=== PATIENT | female | born 1930 | race Caucasian/White ===

== ENCOUNTER 2017-10-23 10:13 | Inpatient (IN) | payer OTHER ==
--- OUTSIDE RECORDS SUMMARY | 2017-10-23 10:15 | XMS REPORT | Clinical Summary ---
:1930 Author Organization [facility] Address [address] [place] [address] Phone Care Team Providers Name Role Phone Unavailable Primary Care Provider Unavailable Allergies No Known Allergies Current Medications Prescription Sig. Disp. Refills Start Date End Date Status HYDROcodone-acetaminoph Take 1 tablet by Active en (NORCO 7.5-325) mouth every 12 7.5-325 mg per tablet (twelve) hours. sucralfate (CARAFATE) 1 Take 1 g by mouth Active gram tablet 3 (three) times daily. cholecalciferol, Take 5,000 Units Active vitamin D3, 5,000 unit by mouth daily. Tab budesonide-formoterol Inhale 2 puffs by Active (SYMBICORT) 160-4.5 mouth via inhaler mcg/actuation inhaler 2 (two) times daily. bimatoprost (LUMIGAN) Place 1 drop into Active 0.03 % ophthalmic drops both eyes nightly. LORazepam (ATIVAN) 0.5 Take 0.5 mg by Active MG tablet mouth 2 (two) times daily as needed for Anxiety. ALENDRONATE SODIUM Take by mouth. Active (FOSAMAX ORAL) pantoprazole (PROTONIX) Take 1 tablet (40 30 tablet 0 09/25/2015 Active 40 MG tablet mg total) by mouth daily. methocarbamol (ROBAXIN) Take 750 mg by Active 750 MG tablet mouth daily as needed. 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 Admission for antineoplastic chemotherapy 10/07/2015 DLBCL (diffuse large B cell lymphoma) (HCC) 09/23/2015 Compression fracture of thoracic spine, non-traumatic ([facility]) 09/16/2015 Pathologic compression fracture of thoracic vertebra ([facility]) 09/11/2015 COPD (chronic obstructive pulmonary disease) ([facility]) Family History Medical History Relation Name Comments Diabetes Mother Relation Name Status Comments Mother Social History Tobacco Use Types Packs/Day Years Used Date Former Smoker Cigarettes 1 35 01/27/1944 - 01/27/1980 Alcohol Use Drinks/Week oz/Week Comments No Sex Assigned at Date Recorded Not on file Last Filed Vital Signs Not on file Plan of Treatment Not on file Implants Implanted Type Area Calciminer Device Expiration Model / Identifier Date Serial / Lot Matrix Floseal Hemo W/O Ndl 10 [id number] - [id number] Cement/F N/A: Spine GROVER:BIOSCI 12/26/2016 [id number] / Implanted: Qty: 1 on 09/17/2015 by Amadeo Vega MD iller/Ad Thoracic / hesive [id number] Voyager Mas 6.5x40 Spine N/A: Spine [employer] [id number] / Implanted: Qty: 1 on 09/17/2015 by Amadeo Vega MD Thoracic / [id number] Voyager Mas 5.5x35 Spine N/A: Spine [employer] [id number] / Implanted: Qty: 4 on 09/17/2015 by Amadeo Vega MD Thoracic / [id number] Voyager Set Screws Spine N/A: Spine [employer] [id number] / Implanted: Qty: 6 on 09/17/2015 by Amadeo Vega MD Thoracic / Orthoblend Small 10cc Spine N/A: Spine [employer] 04/13/2017 [id number] / Implanted: Qty: 1 on 09/17/2015 by Amadeo Vega MD Thoracic [id number] / Bi 4.50x884 Spine N/A: Spine [employer] [id number] / Implanted: Qty: 2 on 09/17/2015 by Amadeo Vega MD Thoracic / [id number] Voyager Mas 6.4x45 Spine N/A: Spine [employer] [id number] / Implanted: Qty: 1 on 09/17/2015 by Amadeo Vega MD Thoracic / [id number] Results Not on fileafter 10/22/2016
[2017-10-23] MEDS ORDERED: METHYLPREDNISOLONE 125 MG INJ ONE (10:37)
[2017-10-23] MEDS ORDERED: AZITHROMYCIN 500 MG/250 ML BAG ONE (10:37)
[2017-10-23] MEDS ORDERED: NA CHLORIDE 0.9% 1,000 ML ONE (10:37)
[2017-10-23] MEDS ORDERED: CEFTRIAXONE/SWI 1gm 1 GM/10 ML SYR ONE (10:37)
[2017-10-23] MEDS ORDERED: IPRATROPIUM BROM 0.5MG/2.5ML ONE (10:38)
[2017-10-23] MEDS ORDERED: ALBUTEROL 2.5 MG/3 ML NEB SOL ONE (10:38)
[2017-10-23 10:51] LABS: Arterial Blood Carboxyhemoglob 1.3 % (0-1.5); Blood Gas Oxyhemoglobin 96.9 % (94-97); Blood O2 Saturation 99.3 % (92-98.5)
[2017-10-23 10:57] LABS: Absolute Lymphocytes (CBC) 0.9 K/uL (0.7-4.9); Absolute Monocytes 0.6 K/uL (0.1-1.3); Absolute Neutrophil 6.5 K/uL (1.8-8.0); Basophils % 0.4 % (0-1.3); Eosinophils % 0.8 % (0-4.4); Hematocrit 43.9 % (36.0-45.0); Lymphocytes % 11.1 % (15.3-44.8); MCH 28.7 pg (27.0-35.0); MCV 87.4 fL (80-100); MPV 8.8 fL (7.6-11.3); Monocytes % 7.6 % (3.3-12.3); RBC Red Blood Cell Count 5.03 M/uL (3.86-4.86)
[2017-10-23 11:02] LABS: Protime INR 0.93
[2017-10-23 11:22] LABS: Albumin 3.3 g/dL (3.4-5.0); Bilirubin Direct 0.2 mg/dL (0-0.2); Bilirubin Total 0.7 mg/dL (0.2-1.0); Magnesium 2.2 mg/dL (1.8-2.4); Potassium 3.4 mmol/L (3.5-5.1); Protein, Total 7.6 g/dL (6.4-8.2)
--- NOTE | 2017-10-23 11:31 | RAD REPORT ---
EXAM DESCRIPTION: RAD - Chest Single View - 10/23/2017 11:21 am CLINICAL HISTORY: Cough;COPD Chest pain. COMPARISON: Chest Single View dated 05/13/2017; Chest Single View dated 09/06/2015; Chest Single View dated 07/13/2015; CHEST PA AND LAT 2 VIEW dated 03/23/2015 FINDINGS: Portable technique limits examination quality. Advanced emphysematous changes with fibrotic pattern seen. Left-sided port catheter has its tip in th e SVC. The heart is normal in size. Diffuse osteopenia present.Right sided axillary node dissection c lips. IMPRESSION: Advanced fibroemphysematous changes.
[2017-10-23] MEDS ORDERED: POTASSIUM 25 MEQ EFFERV TAB ONE (11:57)
[2017-10-23] MEDS ORDERED: ASPIRIN 81 MG CHEWABLE TABLET ONE (11:57)
[2017-10-23] MEDS ORDERED: FAMOTIDINE 20 MG/2 ML VIAL IV ONE (11:57)
[2017-10-23] MEDS ORDERED: ENOXAPARIN 60 MG/0.6 ML SQ ONE (11:58)
--- NOTE | 2017-10-23 11:59 | EDPHYS ---
Physician Documentation [facility] Name: Jessenia Bailey Age: 87 yrs Sex: Female : 1930 Arrival Date: 10/23/2017 Time: 10:16 Bed 5 Private MD: Bill Gregory R ED Physician Felipe Dickinson HPI: 10/23 10:29 This 87 yrs old Female presents to ER via Unassigned with complaints of Chest ge Pain, Weakness. 10:29 The patient or guardian reports chest pain that is located primarily in the anterior ge chest wall. Onset: this morning, last night. The pain does not radiate. Associated signs and symptoms: The patient has no apparent associated signs or symptoms. The chest pain is described as a pressure. Duration: The patient or guardian reports multiple episodes, with no pattern. Severity of pain: At its worst the pain was mild in the emergency department the pain has improved moderately. Historical: - Allergies: 10:33 No Known Allergies; ch - Home Meds: 10:33 Prednisone Oral [Active]; other meds unknown [Active]; ch 11:09 Carafate Oral [Active]; Daliresp 500 mcg Oral tab 1 tab once daily [Active]; ProAir HFA tw2 inhalation [Active]; Symbicort inhalation [Active]; Trazodone Oral [Active]; - PMHx: 10:33 Anxiety; COPD; hypoxia; breast cancer- remission; lymphoma- remission; hiatal hernia; ch UTI; overactive bladder; - PSHx: 10:33 R sided masectomy; L femur; lymphoma off back; Cholecystectomy; 11:09 Mastectomy, Right; femur sx; tw2 - Immunization history:: Adult Immunizations not up to date, Last tetanus immunization: not indicated for visit today. Pneumococcal vaccine is not up to date, Flu vaccine is not up to date. - Social history:: Smoking status: Patient uses tobacco products, former smoker, many years ago, Patient/guardian denies using alcohol, street drugs. - Ebola Screening: : Patient denies travel to an Ebola-affected area in the 21 days before illness onset. ROS: 10:30 Constitutional: Negative for fever, chills, and weight loss, Eyes: Negative for injury, ge pain, redness, and discharge, ENT: Negative for injury, pain, and discharge, Neck: Negative for injury, pain, and swelling, Abdomen/GI: Negative for abdominal pain, nausea, vomiting, diarrhea, and constipation, Back: Negative for injury and pain, : Negative for injury, bleeding, discharge, and swelling, MS/Extremity: Negative for injury and deformity, Skin: Negative for injury, rash, and discoloration, Neuro: Negative for headache, weakness, numbness, tingling, and seizure, Psych: Negative for depression, anxiety, suicide ideation, homicidal ideation, and hallucinations, Allergy/Immunology: Negative for hives, rash, and allergies, Endocrine: Negative for neck swelling, polydipsia, polyuria, polyphagia, and marked weight changes, Hematologic/Lymphatic: Negative for swollen nodes, abnormal bleeding, and unusual bruising. 10:30 Cardiovascular: Positive for chest pain. 10:30 Respiratory: Positive for cough, shortness of breath, wheezing, expiratory. Exam: 10:30 Constitutional: This is a well developed, well nourished patient who is awake, alert, ge and in no acute distress. Head/Face: Normocephalic, atraumatic. Eyes: Pupils equal round and reactive to light, extra-ocular motions intact. Lids and lashes normal. Conjunctiva and sclera are non-icteric and not injected. Cornea within normal limits. Periorbital areas with no swelling, redness, or edema. ENT: Nares patent. No nasal discharge, no septal abnormalities noted. Tympanic membranes are normal and external auditory canals are clear. Oropharynx with no redness, swelling, or masses, exudates, or evidence of obstruction, uvula midline. Mucous membranes moist. Neck: Trachea midline, no thyromegaly or masses palpated, and no cervical lymphadenopathy. Supple, full range of motion without nuchal rigidity, or vertebral point tenderness. No Meningismus. Chest/axilla: Normal chest wall appearance and motion. Nontender with no deformity. No lesions are appreciated. Abdomen/GI: Soft, non-tender, with normal bowel sounds. No distension or tympany. No guarding or rebound. No evidence of tenderness throughout. Back: No spinal tenderness. No costovertebral tenderness. Full range of motion. Female : Normal external genitalia. Skin: Warm, dry with normal turgor. Normal color with no rashes, no lesions, and no evidence of cellulitis. MS/ Extremity: Pulses equal, no cyanosis. Neurovascular intact. Full, normal range of motion. Neuro: Awake and alert, GCS 15, oriented to person, place, time, and situation. Cranial nerves II-XII grossly intact. Motor strength 5/5 in all extremities. Sensory grossly intact. Cerebellar exam normal. Normal gait. Psych: Awake, alert, with orientation to person, place and time. Behavior, mood, and affect are within normal limits. 10:30 Cardiovascular: Rate: tachycardic, Rhythm: regular, Pulses: Pulses are 4+ in bilateral radial, brachial, femoral, popliteal, posterior tibial and and dorsalis pedis arteries.. Heart sounds: normal, Edema: is not appreciated, JVD: is not appreciated. Vital Signs: 10:28 BP 166 / 66; Pulse 131; Resp 35; Pulse Ox 95% on 3 lpm NC; tw2 10:49 Temp 98.6(TE); tw2 11:06 BP 134 / 85; Pulse 137; Resp 22; Pulse Ox 100% on 3 lpm NC; tw2 11:21 BP 134 / 85; Pulse 137; Resp 38; Pulse Ox 99% on 2 lpm NC; tw2 11:49 Weight 63.5 kg; Height 5 ft. 4 in. (162.56 cm); sg 12:28 BP 132 / 73; Pulse 125; Resp 30; Pulse Ox 96% on 3 lpm NC; tw2 13:30 BP 127 / 73; Pulse 65; Resp 19; Pulse Ox 95% on 3 lpm NC; tw2 14:00 BP 138 / 67; Pulse 72; Resp 19; Pulse Ox 95% on 3 lpm NC; tw2 14:30 BP 189 / 100; Pulse 156 MON; Resp 32 S; Pulse Ox 96% on 4 lpm NC; Pain 4/10; sg 15:07 BP 139 / 67; Pulse 80; Resp 19; Pulse Ox 95% on 3 lpm NC; tw2 15:44 BP 114 / 79; Pulse 90 MON; Resp 20 S; Pulse Ox 99% on 50% BiPAP; sg 11:49 Body Mass Index 24.03 (63.50 kg, 162.56 cm) sg 14:30 A fib sg 14:30 pt ABG performed, results require BiPap per provider order sg MDM: 10:23 Patient medically screened. [facility] 10:31 Data reviewed: vital signs, nurses notes, lab test result(s), EKG, radiologic studies, ge plain films. 10/23 10:29 Order name: Basic Metabolic Panel; Complete Time: 11:43 [facility] 10/23 10:29 Order name: CBC with Diff; Complete Time: 11:43 [facility] 10/23 10:29 Order name: Ckmb; Complete Time: 11:43 [facility] 10/23 10:29 Order name: CPK; Complete Time: 11:43 [facility] 10/23 10:29 Order name: LFT's; Complete Time: 11:43 [facility] 10/23 10:29 Order name: Magnesium; Complete Time: 11:43 [facility] 10/23 10:29 Order name: NT PRO-BNP; Complete Time: 11:43 [facility] 10/23 10:29 Order name: PT-INR; Complete Time: 11:43 [facility] 10/23 10:29 Order name: Ptt, Activated; Complete Time: 11:43 [facility] 10/23 10:29 Order name: Troponin (emerg Dept Use Only); Complete Time: 11:43 [facility] 10/23 10:29 Order name: Blood Culture Adult (2) [facility] 10/23 10:29 Order name: Procalcitonin; Complete Time: 11:43 [facility] 10/23 10:29 Order name: Urine Culture [facility] 10/23 10:29 Order name: ABG; Complete Time: 11:43 [facility] 10/23 10:29 Order name: XRAY Chest (1 view); Complete Time: 11:43 [facility] 10/23 12:05 Order name: Basic Metabolic Panel [facility] 10/23 12:05 Order name: Basic Metabolic Panel [facility] 10/23 12:05 Order name: NT PRO-BNP [facility] 10/23 12:06 Order name: Echo with Doppler [facility] 10/23 12:06 Order name: CBC with Automated Diff [facility] 10/23 12:06 Order name: CBC with Automated Diff [facility] 10/23 12:06 Order name: NT PRO-BNP [facility] 10/23 12:06 Order name: Troponin I [facility] 10/23 12:06 Order name: Troponin I [facility] 10/23 12:06 Order name: Troponin I [facility] 10/23 12:06 Order name: Chest Single View [facility] 10/23 14:42 Order name: TSH [facility] 10/23 14:46 Order name: ABG 10/23 14:46 Order name: ABG [facility] 10/23 15:48 Order name: ABG Arterial Blood Gas [facility] 10/23 10:22 Order name: EKG - Nurse/Tech; Complete Time: 15:12 [facility] 10/23 10:22 Order name: EKG; Complete Time: 10:22 [facility] 10/23 10:29 Order name: Cardiac monitoring; Complete Time: 10:29 [facility] 10/23 10:29 Order name: IV Saline Lock; Complete Time: 10:44 [facility] 10/23 10:29 Order name: Labs collected and sent; Complete Time: 10:44 [facility] 10/23 10:29 Order name: O2 Per Protocol; Complete Time: 10:44 [facility] 10/23 10:29 Order name: O2 Sat Monitoring; Complete Time: 10:44 [facility] 10/23 11:25 Order name: Diet Heart Healthy; Complete Time: 11:25 10/23 12:06 Order name: Heart Healthy [facility] 10/23 12:06 Order name: EKG Electrocardiogram [facility] 10/23 12:06 Order name: EKG Electrocardiogram [facility] 10/23 12:06 Order name: Chest Single View [facility] 10/23 14:41 Order name: EKG; Complete Time: 14:42 [facility] 10/23 14:41 Order name: EKG - Nurse/Tech; Complete Time: 15:10 [facility] 10/23 15:07 Order name: BIPAP [facility] Administered Medications: 10:35 Drug: Albuterol - atroVENT (3:1) (2.5 mg - 0.5 mg) 3 ml Route: Nebulizer; tw2 11:50 Follow up: Response: No adverse reaction; Marked relief of symptoms tw2 10:40 Drug: SOLU-Medrol 125 mg Route: IVP; Site: left antecubital; tw2 11:07 Follow up: Response: No adverse reaction tw2 10:43 Drug: NS 0.9% 1000 ml Route: IV; Rate: 125 ml/hr; Site: left antecubital; tw2 16:00 Follow up: Response: No adverse reaction; IV Status: Infusion continued upon admission tw2 11:15 Drug: Rocephin - (cefTRIAXone) 1 grams {Note: ivp available from pharmacy.} Route: tw2 IVPB; Infused Over: 5 mins; Site: left antecubital; 11:20 Follow up: Response: No adverse reaction; IV Status: Completed infusion tw2 11:25 Drug: Zithromax 500 mg Route: IVPB; Infused Over: 1 hrs; Site: left antecubital; tw2 12:25 Follow up: Response: No adverse reaction; IV Status: Completed infusion tw2 12:00 Drug: Potassium Effervescent Tablet 25 mEq Route: PO; tw2 15:12 Follow up: Response: No adverse reaction tw2 12:10 Drug: Lovenox 1 mg/kg Route: Sub-Q; Site: left lower abdomen; tw2 15:10 Follow up: Response: No adverse reaction tw2 12:12 Drug: Pepcid 20 mg Route: IVP; Site: left antecubital; tw2 15:10 Follow up: Response: No adverse reaction tw2 12:26 Not Given (Patient Refused; daughter reports pt given 2 baby aspirin at 9am this tw2 morning, provider notified.): Aspirin Chewable Tablet 162 mg PO once 12:58 Drug: Xopenex 2.5 mg Route: Inhalation; tw2 15:10 Drug: Lopressor 25 mg Route: PO; sg 15:44 Follow up: Response: No adverse reaction sg 15:15 Drug: Lopressor 2.5 mg Route: IVP; Site: left antecubital; sg 16:00 Follow up: Response: No adverse reaction tw2 15:20 Drug: Xopenex 1.25 mg Route: Inhalation; sg 15:25 Drug: Digoxin 0.5 mg Route: IVP; Site: left antecubital; sg 15:44 Follow up: Response: No adverse reaction sg 15:25 Drug: Decadron - Dexamethasone 10 mg Route: IVP; Site: right antecubital; sg 16:00 Follow up: Response: No adverse reaction tw2 15:27 Not Given (Duplicate Order): Lopressor 2.5 mg IVP once; Hold for SBP <100 or HR <60. ge Disposition: 10/23/17 11:58 Hospitalization ordered by Bill Gregory for Inpatient Admission. Preliminary diagnosis are Chest pain, unspecified, Chronic obstructive pulmonary disease with (acute) exacerbation, Hypoxemia, Hypokalemia, Respiratory failure, unspecified with hypercapnia, Atrial fibrillation and flutter. - Bed requested for Telemetry/MedSurg (Inpatient). - Status is Inpatient Admission. iw - Condition is Fair. - Problem is new. - Symptoms have improved. UTI on Admission? No Signatures: Dispatcher [employer] EDMS Tanisha Roca Shania Santiago, RN VAUGHN Harjit Stack, RN Felipe Cornelius MD MD cha Williams, Irene RN VAUGHN iw Kristine Winter RN RN tw2 Corrections: (The following items were deleted from the chart) 13:54 11:58 Hospitalization Ordered by Bill Gregory MD for Inpatient Admission. Preliminary bd diagnosis is Chest pain, unspecified; Chronic obstructive pulmonary disease with (acute) exacerbation; Hypoxemia; Hypokalemia. Bed requested for Telemetry/MedSurg (Inpatient). Status is Inpatient Admission. Condition is Fair. Problem is new. Symptoms have improved. UTI on Admission? No. ge 14:50 13:54 10/23/2017 11:58 Hospitalization Ordered by Bill Gregory MD for Inpatient ge Admission. Preliminary diagnosis is Chest pain, unspecified; Chronic obstructive pulmonary disease with (acute) exacerbation; Hypoxemia; Hypokalemia. Bed requested for Telemetry/MedSurg (Inpatient). Status is Inpatient Admission. Condition is Fair. Problem is new. Symptoms have improved. UTI on Admission? No. bd 15:57 14:50 10/23/2017 11:58 Hospitalization Ordered by Bill Gregory MD for Inpatient iw Admission. Preliminary diagnosis is Chest pain, unspecified; Chronic obstructive pulmonary disease with (acute) exacerbation; Hypoxemia; Hypokalemia; Respiratory failure, unspecified with hypercapnia; Atrial fibrillation and flutter. Bed requested for Telemetry/MedSurg (Inpatient). Status is Inpatient Admission. Condition is Fair. Problem is new. Symptoms have improved. UTI on Admission? No. ge
--- NOTE | 2017-10-23 11:59 | ER ---
Nurse's Notes [facility] Name: Jessenia Bailey Age: 87 yrs Sex: Female : 1930 Arrival Date: 10/23/2017 Time: 10:16 Bed 5 Private MD: Bill Gregory R Diagnosis: Chest pain, unspecified;Chronic obstructive pulmonary disease with (acute) exacerbation;Hypoxemia;Hypokalemia;Respiratory failure, unspecified with hypercapnia;Atrial fibrillation and flutter Presentation: 10/23 10:30 Presenting complaint: Patient states: SOB AND CHEST PAIN STARTED LAST NIGHT. Child ch states: Normally hypoxic, today O2 levels have been dropping into the 70's with any exertion. she normally is 87-91. Transition of care: patient was not received from another setting of care. Onset of symptoms was October 22, 2017 at 21:00. Risk Assessment: Do you want to hurt yourself or someone else? Patient reports no desire to harm self or others. Initial Sepsis Screen: Does the patient meet any 2 criteria? No. Patient's initial sepsis screen is negative. Does the patient have a suspected source of infection? No. Patient's initial sepsis screen is negative. Care prior to arrival: home O2 at 2L always. 10:30 Method Of Arrival: Wheelchair 10:30 Acuity: IVETH 2 Triage Assessment: 10:33 General: Appears distressed, uncomfortable. Historical: - Allergies: 10:33 No Known Allergies; ch - Home Meds: 10:33 Prednisone Oral [Active]; other meds unknown [Active]; 11:09 Carafate Oral [Active]; Daliresp 500 mcg Oral tab 1 tab once daily [Active]; ProAir HFA tw2 inhalation [Active]; Symbicort inhalation [Active]; Trazodone Oral [Active]; - PMHx: 10:33 Anxiety; COPD; hypoxia; breast cancer- remission; lymphoma- remission; hiatal hernia; UTI; overactive bladder; - PSHx: 10:33 R sided masectomy; L femur; lymphoma off back; Cholecystectomy; 11:09 Mastectomy, Right; femur sx; tw2 - Immunization history:: Adult Immunizations not up to date, Last tetanus immunization: not indicated for visit today. Pneumococcal vaccine is not up to date, Flu vaccine is not up to date. - Social history:: Smoking status: Patient uses tobacco products, former smoker, many years ago, Patient/guardian denies using alcohol, street drugs. - Ebola Screening: : Patient denies travel to an Ebola-affected area in the 21 days before illness onset. Screenin:22 Abuse screen: Denies threats or abuse. Nutritional screening: No deficits noted. tw2 Tuberculosis screening: No symptoms or risk factors identified. Fall Risk Secondary diagnosis (15 points) impaired mobility. Assessment: 10:27 General: Appears distressed, Behavior is appropriate for age. Pain: Complains of pain tw2 in chest Pain does not radiate. Pain began last night. Neuro: Level of Consciousness is awake, alert, obeys commands, Oriented to person, place, time, situation. Cardiovascular: Heart tones S1 S2 Patient's skin is warm and dry. Respiratory: Airway is patent Respiratory effort is even, labored, Respiratory pattern is regular, hyperventilation Breath sounds are diminished bilaterally. GI: No signs and/or symptoms were reported involving the gastrointestinal system. Abdomen is flat, Bowel sounds present X 4 quads. : No signs and/or symptoms were reported regarding the genitourinary system. EENT: No signs and/or symptoms were reported regarding the EENT system. Derm: No signs and/or symptoms reported regarding the dermatologic system. Musculoskeletal: Range of motion: intact in all extremities. 10:43 Reassessment: respiratory at bedside at this time. tw2 11:20 Reassessment: Patient appears in no apparent distress at this time. Patient and/or tw2 family updated on plan of care and expected duration. Pain level reassessed. Patient is alert, oriented x 3, equal unlabored respirations, skin warm/dry/pink. Patient states symptoms have improved. 12:28 Reassessment: Patient appears in no apparent distress at this time. Patient and/or tw2 family updated on plan of care and expected duration. Pain level reassessed. Patient is alert, oriented x 3, equal unlabored respirations, skin warm/dry/pink. 14:00 Reassessment: Patient appears in no apparent distress at this time. Patient and/or tw2 family updated on plan of care and expected duration. Pain level reassessed. Patient is alert, oriented x 3, equal unlabored respirations, skin warm/dry/pink. 14:36 Reassessment: pt VS abnormal, updated . New orders recieved. sg 15:08 Reassessment: Patient appears in no apparent distress at this time. Patient and/or tw2 family updated on plan of care and expected duration. Pain level reassessed. Reassessment: Patient is alert, oriented x 3, equal unlabored respirations, skin warm/dry/pink. 15:37 Reassessment: pt vs stable at this time, an updated report was called to Chantell MENDES sg receiving nurse with Kay MENDES prior to admission to 2nd floor. Vital Signs: 10:28 BP 166 / 66; Pulse 131; Resp 35; Pulse Ox 95% on 3 lpm NC; tw2 10:49 Temp 98.6(TE); tw2 11:06 BP 134 / 85; Pulse 137; Resp 22; Pulse Ox 100% on 3 lpm NC; tw2 11:21 BP 134 / 85; Pulse 137; Resp 38; Pulse Ox 99% on 2 lpm NC; tw2 11:49 Weight 63.5 kg; Height 5 ft. 4 in. (162.56 cm); sg 12:28 BP 132 / 73; Pulse 125; Resp 30; Pulse Ox 96% on 3 lpm NC; tw2 13:30 BP 127 / 73; Pulse 65; Resp 19; Pulse Ox 95% on 3 lpm NC; tw2 14:00 BP 138 / 67; Pulse 72; Resp 19; Pulse Ox 95% on 3 lpm NC; tw2 14:30 BP 189 / 100; Pulse 156 MON; Resp 32 S; Pulse Ox 96% on 4 lpm NC; Pain 4/10; sg 15:07 BP 139 / 67; Pulse 80; Resp 19; Pulse Ox 95% on 3 lpm NC; tw2 15:44 BP 114 / 79; Pulse 90 MON; Resp 20 S; Pulse Ox 99% on 50% BiPAP; sg 11:49 Body Mass Index 24.03 (63.50 kg, 162.56 cm) sg 14:30 A fib sg 14:30 pt ABG performed, results require BiPap per provider order ED Course: 10:16 Patient arrived in ED. mr 10:16 Bill Gregory MD is Private Physician. mr 10:20 Patient erp notified, RT paged. ch 10:21 Kristine Winter RN is Primary Nurse. tw2 10:22 Arm band placed on. tw2 10:22 Bed in low position. Call light in reach. Adult w/ patient. emulsification operator on. Pulse tw2 ox on. NIBP on. 10:23 Felipe Dickinson MD is Attending Physician. ge 10:29 EKG done, by master fire control technician. reviewed by Felipe Dickinson MD. at1 10:32 Triage completed. ch 10:45 Inserted saline lock: 20 gauge in left antecubital area, using aseptic technique. tw2 ,using aseptic technique. per VAUGHN Arambula Blood collected. 11:07 Oxygen administration via nasal cannula \T\ 2L/min. tw2 11:21 XRAY Chest (1 view) In Process Unspecified. EDMS 11:57 Bill Gregory MD is Hospitalizing Provider. ge 14:52 EKG done, by master fire control technician. reviewed by Felipe Dickinson MD Repeat EKG. at1 15:08 No provider procedures requiring assistance completed. Patient admitted, IV remains in tw2 place. 15:15 Awaiting: room upstairs to be ready and clear for patient prior to admission. tw2 15:15 BIPAP Sent. tw2 Administered Medications: 10:35 Drug: Albuterol - atroVENT (3:1) (2.5 mg - 0.5 mg) 3 ml Route: Nebulizer; tw2 11:50 Follow up: Response: No adverse reaction; Marked relief of symptoms tw2 10:40 Drug: SOLU-Medrol 125 mg Route: IVP; Site: left antecubital; tw2 11:07 Follow up: Response: No adverse reaction tw2 10:43 Drug: NS 0.9% 1000 ml Route: IV; Rate: 125 ml/hr; Site: left antecubital; tw2 16:00 Follow up: Response: No adverse reaction; IV Status: Infusion continued upon admission tw2 11:15 Drug: Rocephin - (cefTRIAXone) 1 grams {Note: ivp available from pharmacy.} Route: tw2 IVPB; Infused Over: 5 mins; Site: left antecubital; 11:20 Follow up: Response: No adverse reaction; IV Status: Completed infusion tw2 11:25 Drug: Zithromax 500 mg Route: IVPB; Infused Over: 1 hrs; Site: left antecubital; tw2 12:25 Follow up: Response: No adverse reaction; IV Status: Completed infusion tw2 12:00 Drug: Potassium Effervescent Tablet 25 mEq Route: PO; tw2 15:12 Follow up: Response: No adverse reaction tw2 12:10 Drug: Lovenox 1 mg/kg Route: Sub-Q; Site: left lower abdomen; tw2 15:10 Follow up: Response: No adverse reaction tw2 12:12 Drug: Pepcid 20 mg Route: IVP; Site: left antecubital; tw2 15:10 Follow up: Response: No adverse reaction tw2 12:26 Not Given (Patient Refused; daughter reports pt given 2 baby aspirin at 9am this tw2 morning, provider notified.): Aspirin Chewable Tablet 162 mg PO once 12:58 Drug: Xopenex 2.5 mg Route: Inhalation; tw2 15:10 Drug: Lopressor 25 mg Route: PO; sg 15:44 Follow up: Response: No adverse reaction sg 15:15 Drug: Lopressor 2.5 mg Route: IVP; Site: left antecubital; sg 16:00 Follow up: Response: No adverse reaction tw2 15:20 Drug: Xopenex 1.25 mg Route: Inhalation; sg 15:25 Drug: Digoxin 0.5 mg Route: IVP; Site: left antecubital; sg 15:44 Follow up: Response: No adverse reaction sg 15:25 Drug: Decadron - Dexamethasone 10 mg Route: IVP; Site: right antecubital; sg 16:00 Follow up: Response: No adverse reaction tw2 15:27 Not Given (Duplicate Order): Lopressor 2.5 mg IVP once; Hold for SBP <100 or HR <60. ge Outcome: 11:58 Decision to Hospitalize by Provider. ge 14:12 Admitted to Tele accompanied by tech, family with patient, via stretcher, room 225, sg with chart, Report called to VAUGHN Villanueva 14:12 Condition: stable 14:12 Instructed on the need for admit, safety practices, Demonstrated understanding of instructions, follow-up care. 15:57 Patient left the ED. Signatures: Dispatcher [employer] EDMS Shania Santiago RN RN ch Gay, Steven, RN RN sg Anderson, Corey, MD MD cha Rivera, Maria mr Williams, Irene, RN RN Praveena Yeung, optical mechanic EKG Tat1 Winter, Kristine, RN RN tw2
[2017-10-23] MEDS ORDERED: ACETAMINOPHEN 500 MG TAB PO PRN (12:01)
[2017-10-23] MEDS ORDERED: MORPHINE 2 MG/ML SYR IV PRN (12:01)
[2017-10-23] MEDS ORDERED: ONDANSETRON 4 MG/2 ML VIAL IV PRN (12:01)
--- NOTE | 2017-10-23 12:25 | EKG ---
Test Date: 2017-10-23 Test Time: 10:23:14 Health And Safety Consultant: NICOLASA MEASUREMENT RESULTS: Intervals: Rate: 154 ND: 136 QRSD: 68 QT: 286 QTc: 458 Laura: P: 76 ND: 136 QRS: 62 T: 57 INTERPRETIVE STATEMENTS: Sinus tachycardia with occasional and consecutive premature ventricular complexes Possible Anterior infarct, age undetermined Abnormal ECG Compared to ECG 05/13/2017 18:35:22 Ventricular premature complex(es) now present Myocardial infarct finding now present Atrial premature complex(es) no longer present Electronically Signed On 10-23-17 12:24:26 CDT by Chito Spangler
[2017-10-23] MEDS ORDERED: DIGOXIN 0.25 MG/ML AMP IV SCH (15:00)
[2017-10-23] MEDS ORDERED: DIGOXIN 0.25 MG TABLET ONE (15:01)
[2017-10-23] MEDS ORDERED: METOPROLOL TAR 25 MG TAB ONE (15:01)
[2017-10-23] MEDS ORDERED: METOPROLOL TARTRATE 5 MG/5 ML INJ IV ONE (15:02)
[2017-10-23] MEDS ORDERED: LEVALBUTEROL 1.25 MG/3 ML NEB ONE (15:15)
[2017-10-23] MEDS ORDERED: DEXAMETHASONE 4 MG/ML VIAL ONE (15:17)
[2017-10-23 15:46] LABS: Arterial Blood Carboxyhemoglob 1.4 % (0-1.5); Blood Gas Oxyhemoglobin 87.3 % (94-97); Blood O2 Saturation 89.5 % (92-98.5)
[2017-10-23 16:45] VITALS: BMI 28.8
[2017-10-23] MEDS: METOPROLOL TAR 25 MG TAB PO SCH (17:40)
[2017-10-23] MEDS: METHYLPREDNISOLONE 40 MG INJ IV SCH (17:41)
[2017-10-23] MEDS ORDERED: PNEUMOCOCCAL VACCINE 0.5 ML IMVAC ONE (21:00)
[2017-10-23] MEDS ORDERED: ENOXAPARIN 60 MG/0.6 ML SQ SCH (21:00)
[2017-10-23] MEDS ORDERED: HALOPERIDOL LACT 5 MG/ML INJ IM PRN (22:06)
[2017-10-23 23:14] LABS: Urine Appearance CLEAR; Urine Bilirubin NEGATIVE (NEG); Urine Blood NEGATIVE (NEG); Urine Color YELLOW; Urine Glucose TRACE (NEG); Urine Protein NEGATIVE (NEG); Urine Urobilinogen 0.2 mg/dL (0.2-1.0)
[2017-10-23 23:15] LABS: Urine Microscopic Reflex NO UMIC
[2017-10-24] MEDS: METHYLPREDNISOLONE 40 MG INJ IV SCH ×3 (01:15→18:39)
[2017-10-24] MEDS: METOPROLOL TAR 25 MG TAB PO SCH ×2 (05:52→18:39)
[2017-10-24] MEDS ORDERED: SODIUM CHLORIDE 0.9% 10ML INJ IV PRN (08:43)
[2017-10-24] MEDS ORDERED: AZITHROMYCIN IV 500 MG in NA CHLORIDE 0.9% 250 ML IVPB SCH (09:00)
[2017-10-24] MEDS: ENOXAPARIN 60 MG/0.6 ML SQ SCH ×2 (09:00→20:17)
[2017-10-24] MEDS: CEFTRIAXONE/SWI 1gm 1 GM/10 ML SYR IV SCH (09:00)
[2017-10-24] MEDS: ASPIRIN EC 81 MG TAB PO SCH (10:14)
[2017-10-24] MEDS: PANTOPRAZOLE 40 MG INJ IVP SCH (10:14)
[2017-10-24] MEDS: IPRATROPIUM BROM 0.5MG/2.5ML NEB PRN ×2 (10:39→19:33)
[2017-10-24] MEDS: ALBUTEROL 2.5 MG/3 ML NEB SOL NEB PRN (10:39)
[2017-10-24] MEDS: MAGNES/ALUMIN/SIMET 30ML UCUP PO PRN ×2 (11:13→20:16)
[2017-10-24] MEDS: ALPRAZOLAM 0.25 MG TABLET PO PRN ×2 (11:29→18:40)
--- NOTE | 2017-10-24 12:00 | P.CNS ---
Date of Consult: 10/24/17 Reason for Consult: COPD chest pain Chief Complaint: Chest pain History of Present Illness: Patient is 87 years of age well known to me with a history of terminal COPD admitted with chest pain and possible urinary tract infection he has chronic baseline hypoxemia with hypercarbia on 2 L of nasal cannula oxygen oxygenation is satisfactory urinalysis was negative on this hospitalization mildly elevated troponin Allergies No Known Allergies Allergy (Verified 05/14/17 00:02) Home Medications: Budesonide/Formoterol Fumarate [Symbicort 160-4.5 Mcg Inhaler] 2 puff IH DAILY 09/06/15 Aspirin Chewable [Aspirin Chewable*] 81 mg PO BEDTIME 08/04/16 Cholecalciferol (Vitamin D3) [Vitamin D3] 5,000 unit PO BEDTIME 08/04/16 Melatonin [Melatonin*] 3 mg PO BEDTIME 08/04/16 Albuterol Sulfate [Albuterol Sulfate 0.083% Neb Soln] 2.5 mg IH Q4H PRN #60 ml 05/14/17 Ipratropium Neb [Atrovent Neb] 0.5 mg IH Q4H PRN #30 amp 05/14/17 Methylprednisolone [Medrol dosepack] 4 mg PO DAILY 10/23/17 Omeprazole [Prilosec] 40 mg PO DAILY 10/23/17 Theophylline Anhydrous [Juancho-24] 200 mg PO BID 10/23/17 - Past Medical/Surgical History Diabetic: No -: COPD -: osteoporosis -: Compression fractures -: Breast Ca -: Spinal Ca -: right mastectomy,rt -: left femur repair -: cholecystectomy -: spinal surgery - Family History Sister Medical History: Hypertension, Diabetes Mother Medical History: Diabetes - Social History Alcohol use: No CD- Drugs: No Caffeine use: Yes Place of Residence: Home Review of Systems General: Weakness Respiratory: Shortness of Breath Cardiovascular: Chest Pain Physical Examination Temp Pulse Resp BP Pulse Ox 98.8 F 78 28 H 115/66 93 10/24/17 08:00 10/24/17 08:00 10/24/17 08:00 10/24/17 08:00 10/24/17 08:00 General: Alert, Oriented x2 Neck: Supple Respiratory: Diminished, Expiratory wheezes Cardiovascular: No edema, Normal S1 S2 - Problems (1) COPD with acute exacerbation Onset Date: 05/14/17 Current Visit: No Status: Acute Plan: Patient is 87 years of age with a history of terminal COPD admitted with acute exacerbation and chest pain phoned is mildly elevated chest x-ray shows COPD changes CO2 on O2 levels are at baseline on 2 L nasal cannula oxygen labs reviewed no evidence of sepsis TSH level is satisfactory BNP elevated I suspect is from her cor pulmonale pro calcitonin level is negative Dc Zithromax white count normal echocardiogram pending according to the daughter daughter she is noticed her heart rate was very high patient was in AFib possible discharge tomorrow with rate control. Patient is probably high risk for anticoagulation
--- NOTE | 2017-10-24 12:45 | RAD REPORT ---
EXAM DESCRIPTION: CT - Head Brain Wo Cont - 10/24/2017 12:34 pm CLINICAL HISTORY: Numbness COMPARISON: None TECHNIQUE: Computed axial tomography of the head was obtained. IV contrast was not requested. All CT scans are performed using dose optimization technique as appropriate and may include automated exposure control or mA/KV adjustment according to patient size. FINDINGS: An intracranial bleed is not seen . The ventricles are normal in caliber. Vascular calcifications are present. Calcification of the tento rium is noted. No extra-axial fluid collection is noted. Mild low-density areas within periventricular, deep and sub cortical white matter likely represent ischemic changes secondary to small vessel disease. Fluid within the sinuses/ mastoids is not seen. IMPRESSION: No acute intracranial abnormality is seen. If patient's symptoms persist MRI of the bra in would be recommended.
[2017-10-24] MEDS: IPRATROPIUM BROM 0.5MG/2.5ML NEB SCH ×2 (14:29→20:00)
--- NOTE | 2017-10-24 16:16 | EKG ---
Test Date: 2017-10-24 Test Time: 09:01:35 Senior Account Manager: KERRI MEASUREMENT RESULTS: Intervals: Rate: 87 TX: 138 QRSD: 72 QT: 318 QTc: 382 [place]: P: 66 TX: 138 QRS: 58 T: 59 INTERPRETIVE STATEMENTS: Sinus rhythm with premature atrial complexes Possible Anterior infarct, age undetermined Abnormal ECG Compared to ECG 10/23/2017 14:39:41 Atrial premature complex(es) now present Atrial fibrillation no longer present Myocardial infarct finding still present Electronically Signed On 10-24-17 16:14:31 CDT by Chito Spangler
--- NOTE | 2017-10-24 16:20 | EKG ---
Test Date: 2017-10-23 Test Time: 14:39:41 Outside Sales Account Executive: ISHA MEASUREMENT RESULTS: Intervals: Rate: 145 AL: QRSD: 72 QT: 258 QTc: 400 [place]: P: AL: QRS: 52 T: 60 INTERPRETIVE STATEMENTS: Atrial fibrillation with rapid ventricular response Cannot rule out Anterior infarct, age undetermined Abnormal ECG Compared to ECG 10/23/2017 10:23:14 Sinus tachycardia no longer present Ventricular premature complex(es) no longer present Myocardial infarct finding still present Electronically Signed On 10-24-17 16:14:57 CDT by Chito Spangler
--- NOTE | 2017-10-24 16:37 | ECHO ---
HEIGHT: 5 ft 4 in WEIGHT: 133 lb 0 oz DATE OF STUDY: 10/24/[address]: Felipe Dickinson MD 2-DIMENSIONAL: YES M.MODE: YES DOPPLER: YES COLOR FLOW: YES TDS: PORTABLE: DEFINITY: BUBBLE STUDY: DIAGNOSIS: CHEST PAIN CARDIAC HISTORY: CATHERIZATION: NO SURGERY: NO PROSTHETIC VALVE: NO PACEMAKER: NO MEASUREMENTS (cm) DIASTOLIC (NORMALS) SYSTOLIC (NORMALS) IVSd 0.8 (0.6-1.2) LA Diam 2.3 (1.9-4.0) LVEF 74% LVIDd 3.4 (3.5-5.7) LVIDs 2.0 (2.0-3.5) %FS 42% LVPWd 0.8 (0.6-1.2) Ao Diam 2.6 (2.0-3.7) 2 DIMENSIONAL ASSESSMENT: RIGHT ATRIUM: NORMAL LEFT ATRIUM: NORMAL RIGHT VENTRICLE: NORMAL LEFT VENTRICLE: NORMAL TRICUSPID VALVE: NORMAL MITRAL VALVE: MITRAL ANNULAR CALCIFICATION PULMONIC VALVE: NORMAL AORTIC VALVE: SCLEROSIS PERICARDIAL EFFUSION: NONE AORTIC ROOT: NORMAL LEFT VENTRICULAR WALL MOTION: NORMAL DOPPLER/COLOR FLOW: MILD MITRAL REGURGITATION, TRICUSPID REGURGITATION AND AORTIC REGURGITATION. COMMENTS: MILD MITRAL REGURGITATION, TRICUSPID REGURGITATION AND AORTIC REGURGITATION. NORMAL RIGHT VENTRICULAR SYSTOLIC PRESSURE. NORMAL LEFT VENTRICULAR SIZE AND FUNCTION. NO EFFUSION. TECHNOLOGIST: TELLO RICHARDS
[2017-10-24] MEDS ORDERED: ENOXAPARIN 30 MG/0.3 ML SQ SCH (17:00)
[2017-10-24] MEDS: ARFORMOTEROL TARTRATE 15 MCG/2 ML VIAL.NEB NEB SCH (19:29)
--- NOTE | 2017-10-24 19:50 | HP ---
Date of Admission: 10/23/2017 Chief Complaint: Wheezing, dyspnea. History Of Present Illness: An 87-year-old female who was brought to the emergency room because of m ultiple complaints including wheezing, epigastric pain, lower sternal pain. The patient had evaluati on done and the patient was admitted with a diagnosis of exacerbation of COPD, chest pain. The patie nt may have had atrial fibrillation even though it is not documented on the EKG. There is no history of fever, chills, or rigors. Past Medical History: Positive for COPD, history of breast cancer, lymphoma, hiatal hernia, overacti ve bladder. Past Surgical History: Positive for right mastectomy, surgery right hip. Medications At Admission: Carafate, Daliresp, ProAir, Symbicort, and trazodone. Allergies: NONE. Review of Systems: No history of fever, chills, rigors. Physical Examination: General: Revealed 87-year-old female, alert for her age. HEENT: Negative. Neck: Supple. JVD negative. Chest: Bilateral scattered wheezes. Heart: Occasional irregularity noted. Abdomen: Tender epigastrium. Bowel sounds present. There is a growth in right chest wall with inte rtrigo. Laboratory Data: White count normal. Urinalysis normal, Chem profile, elevated CO2. Blood gases, CO2 retention. Chest x-ray, COPD changes. Plan: The patient is already on breathing treatments, IV steroids, and IV antibiotic. The patient w ill also have consultation as requested by family for cardiac evaluation. BROCK/TOBI Voice ID: [id number]
[2017-10-25] MEDS: METHYLPREDNISOLONE 40 MG INJ IV SCH ×2 (01:23→09:35)
[2017-10-25] MEDS: ALPRAZOLAM 0.25 MG TABLET PO PRN ×3 (01:31→20:37)
[2017-10-25] MEDS: IPRATROPIUM BROM 0.5MG/2.5ML NEB SCH ×4 (03:14→19:48)
[2017-10-25] MEDS: METOPROLOL TAR 25 MG TAB PO SCH (06:03)
[2017-10-25] MEDS: ARFORMOTEROL TARTRATE 15 MCG/2 ML VIAL.NEB NEB SCH ×2 (07:46→19:48)
--- NOTE | 2017-10-25 08:29 | CON ---
Date of Consultation: 10/24/2017 Reason For Consultation: Atrial fibrillation. History Of Present Illness: Ms. Bailey is an 87-year-old woman who has a history of COPD, anxiety, lym phoma, breast cancer, no known cardiac disease, came in with COPD exacerbation and CO2 retention. He r pO2 was 56, pCO2 was 59, with a pH of 7.42. She was hypokalemic and went into atrial fibrillation, which resolved back to sinus rhythm spontaneously. No cardiac symptoms reported. Past Medical History: As stated above. Allergies: NONE. Review of Systems: Negative. Social History: Negative. Family History: Negative. Medications: At home include theophylline, inhalers, aspirin, and Prilosec. Physical Examination: General: She is in sinus rhythm. Vital Signs stable, afebrile. HEENT: Negative. Neck: Supple with no bruit. Chest: Clear. Cardiac: Reveals regular rhythm and rate. No murmurs, gallops, or rubs. Abdomen: Benign. Extremities: Reveal no clubbing, cyanosis, or edema. Diagnostic Data: As stated earlier. Troponin was 0.06. Her BNP was 1819. Impression And Plan: 1.Atrial fibrillation, probably secondary to hypoxia from chronic obstructive pulmonary disease, now has resolved. 2.Elevated troponin, secondary to atrial fibrillation and chronic obstructive pulmonary disease. Sh e has normal echocardiogram. No need to do a stress test or coronary intervention at this point. 3.Anxiety. 4.History of breast cancer and lymphoma and gastroesophageal reflux disease. I would personally continue the medical therapy as is. I would avoid beta-blockers with her COPD and also to avoid any anticoagulation at this point considering her age. I think using a calcium blocke r such as diltiazem and verapamil may be reasonable to prevent atrial fibrillation. I will leave de t up to Dr. Gregory. The patient can go home whenever it is okay with Dr. Gregory. NB/MODL Voice ID: [id number] Report ID: [id number]
[2017-10-25] MEDS: ENOXAPARIN 60 MG/0.6 ML SQ SCH (09:34)
[2017-10-25] MEDS: DILTIAZEM HCL 120 MG SR CAP PO SCH (09:34)
[2017-10-25] MEDS: ASPIRIN EC 81 MG TAB PO SCH (09:34)
[2017-10-25] MEDS: CEFTRIAXONE/SWI 1gm 1 GM/10 ML SYR IV SCH (09:35)
[2017-10-25] MEDS: PANTOPRAZOLE 40 MG INJ IVP SCH (09:35)
[2017-10-25] MEDS: ALBUTEROL 2.5 MG/3 ML NEB SOL NEB PRN (13:41)
[2017-10-25] MEDS ORDERED: ENOXAPARIN 30 MG/0.3 ML SQ SCH (17:00)
[2017-10-25] MEDS: predniSONE 20 MG TAB PO SCH (20:37)
--- NOTE | 2017-10-25 22:17 | PN ---
Subjective: The patient is doing much better. Her wheezing is better. Cardiology consult recommend ations noted. She will be taken off metoprolol and started on Cardizem. The patient wants to go maximino e. However, she is on IV steroids, which will be changed to oral steroids; and after recommendations from Pulmonary Service, she will be discharged to family's care. However, I have concern as she nee ds almost total care as well as supervision, with all which she will be at risk for falls. This was explained to the daughter. BROCK/TOBI Voice ID: [id number] Report ID: [id number]
[2017-10-26] MEDS: IPRATROPIUM BROM 0.5MG/2.5ML NEB SCH ×2 (01:24→08:11)
[2017-10-26] MEDS: ALPRAZOLAM 0.25 MG TABLET PO PRN (02:20)
[2017-10-26 04:17] VITALS: TEMP 97.6
[2017-10-26] MEDS: ARFORMOTEROL TARTRATE 15 MCG/2 ML VIAL.NEB NEB SCH (08:11)
[2017-10-26] MEDS: predniSONE 20 MG TAB PO SCH (08:57)
[2017-10-26] MEDS: DILTIAZEM HCL 120 MG SR CAP PO SCH (08:57)
[2017-10-26] MEDS: PANTOPRAZOLE 40 MG INJ IVP SCH (08:58)
[2017-10-26] MEDS: ASPIRIN EC 81 MG TAB PO SCH (08:58)
[2017-10-26] MEDS: CEFTRIAXONE/SWI 1gm 1 GM/10 ML SYR IV SCH (08:58)
[2017-10-26 13:02] VITALS: BP 132/60
[2017-10-26 13:26] VITALS: O2SAT 92
== END 2017-10-26 13:30 | disposition home or self-care (01) | DRG 191 ==
LOC: ER 10:13 → ERHOLD 12:00 → 2ND 14:29 → ERHOLD 14:29 → 2ND 16:10
PROVIDERS: ADMIT Internal Medicine; ATTEND Internal Medicine
PROC: 5A09457 Assistance with Respiratory Ventilation, 24-96 Consecutive Hours, Continuous Positive Airway Pressure (ICD-10-PCS; principal; 2017-10-23)
DX: J44.1 Chronic obstructive pulmonary disease with (acute) exacerbation (principal); E87.2 Acidosis; C85.90 Non-Hodgkin lymphoma, unspecified, unspecified site; F41.9 Anxiety disorder, unspecified; Z85.3 Personal history of malignant neoplasm of breast; E87.6 Hypokalemia; I48.91 Unspecified atrial fibrillation; R09.02 Hypoxemia; R74.8 Abnormal levels of other serum enzymes; K21.9 Gastro-esophageal reflux disease without esophagitis; Z90.11 Acquired absence of right breast and nipple; Z99.81 Dependence on supplemental oxygen; Z79.82 Long term (current) use of aspirin; M81.0 Age-related osteoporosis without current pathological fracture; Z87.891 Personal history of nicotine dependence
CPT/HCPCS: 36415; 70450; 71045; 80048; 80076; 81003; 82550; 82553; 82805; 83735; 83880; 84145; 84443; 84484; 85025; 85610; 85730; 87040; 87070; 87086; 87088; 87205; 93005; 93306; 94640; 94660; 94760; 96372; 99285; C9113; J0456; J0696; J1160; J1650; J2920; J2930; J7030; J7512; J7605

== ENCOUNTER 2017-11-03 06:08 | Inpatient (IN) | payer OTHER ==
--- OUTSIDE RECORDS SUMMARY | 2017-11-03 06:11 | XMS REPORT | Clinical Summary ---
:1930 Author Organization [facility] Address [address] [place] [address] Phone Care Team Providers Name Role Phone [...] fracture of thoracic spine, non-traumatic ([facility]) 09/16/2015 Pathologic compression fracture of thoracic vertebra ([facility]) 09/11/2015 COPD (chronic obstructive pulmonary disease) ([facility]) Family History Medical History Relation Name Comments Diabetes Mother Relation Name Status Comments Mother Social History Tobacco Use Types Packs/Day Years Used Date Former Smoker Cigarettes 1 35 01/27/1944 - 01/27/1980 Alcohol Use Drinks/Week oz/Week Comments No Sex Assigned at Date Recorded Not on file Last Filed Vital Signs Not on file Plan of Treatment Not on file Implants Implanted Type Area Digital Media Buyer Device Expiration Model / Identifier Date Serial / Lot Matrix Floseal Hemo W/O Ndl 10 [id number] - [id number] Cement/F N/A: Spine GROVER:BIOSCI 12/26/2016 [id number] / Implanted: Qty: 1 on 09/17/2015 by Amadeo Vega MD iller/Ad Thoracic / hesive [id number] Voyager Mas 6.5x40 Spine N/A: Spine [employer] [id number] / Implanted: Qty: 1 on 09/17/2015 by Amadeo Vega MD Thoracic / [id number] Voyager Mas 5.5x35 Spine N/A: Spine [employer] [id number] / Implanted: Qty: 4 on 09/17/2015 by Amadeo Vega MD Thoracic / [id number] Voyager Set Screws Spine N/A: Spine [employer] [id number] / Implanted: Qty: 6 on 09/17/2015 by Amadeo Vega MD Thoracic / Orthoblend Small 10cc Spine N/A: Spine [employer] 04/13/2017 [id number] / Implanted: Qty: 1 on 09/17/2015 by Amadeo Vega MD Thoracic [id number] / Bi [id number] Spine N/A: Spine [employer] [id number] / Implanted: Qty: 2 on 09/17/2015 by Amadeo Vega MD Thoracic / [id number] Voyager Mas 6.4x45 Spine N/A: Spine [employer] [id number] / Implanted: Qty: 1 on 09/17/2015 by Amadeo Vega MD Thoracic / [id number] Results Not on fileafter 11/02/2016
[2017-11-03] MEDS ORDERED: METHYLPREDNISOLONE 125 MG INJ ONE (06:43)
[2017-11-03] MEDS ORDERED: ALBUTEROL 2.5 MG/3 ML NEB SOL ONE (06:43)
[2017-11-03] MEDS ORDERED: IPRATROPIUM BROM 0.5MG/2.5ML ONE (06:43)
[2017-11-03 07:15] LABS: Protime INR 0.89
[2017-11-03 07:22] LABS: Absolute Monocytes 0.7 K/uL (0.1-1.3); Absolute Neutrophil 10.2 K/uL (1.8-8.0); Basophils % 0.1 % (0-1.3); Eosinophils % 0.7 % (0-4.4); Hematocrit 43.6 % (36.0-45.0); Lymphocytes % 8.1 % (15.3-44.8); MCH 28.9 pg (27.0-35.0); MCV 87.7 fL (80-100); MPV 8.5 fL (7.6-11.3); RBC Red Blood Cell Count 4.97 M/uL (3.86-4.86)
[2017-11-03] MEDS ORDERED: MAGNESIUM SULFATE 1 gm IVPB 0 GM/0 ML BAG IV ONE (07:33)
[2017-11-03] MEDS ORDERED: METOPROLOL TAR 25 MG TAB ONE (07:33)
[2017-11-03] MEDS ORDERED: Magnesium Sulfate 2gm IVPB 2 G/50 ML BAG IV ONE (07:35)
[2017-11-03 07:38] LABS: Albumin 3.4 g/dL (3.4-5.0); Bilirubin Direct 0.2 mg/dL (0-0.2); Bilirubin Total 0.9 mg/dL (0.2-1.0); Magnesium 2.4 mg/dL (1.8-2.4); Potassium 3.2 mmol/L (3.5-5.1); Protein, Total 7.2 g/dL (6.4-8.2); Troponin (Emerg Dept Use Only) 0.09 ng/mL (0.0-0.045)
[2017-11-03 07:49] LABS: Blood Morphology Comment NOT SEEN (NOT SEEN); Platelet Estimate ADEQ; Urine White Blood Cell Casts OK
--- NOTE | 2017-11-03 09:14 | EDPHYS ---
Physician Documentation [facility] Name: Jessenia Bailey Age: 87 yrs Sex: Female : 1930 Arrival Date: 11/03/2017 Time: 06:10 Bed 8 Private MD: Bill Gregory R ED Physician Cornell Chow HPI: 11/03 06:51 This 87 yrs old Female presents to ER via Wheelchair with complaints of kb Breathing Difficulty. 06:51 The patient has shortness of breath at rest, and the patient has a history of COPD. kb Onset: The symptoms/episode began/occurred yesterday. Duration: The symptoms are continuous, and are steadily getting worse. The patient's shortness of breath is aggravated by light activity. Associated signs and symptoms: Pertinent positives: chest pain, productive cough. Severity of symptoms: At their worst the symptoms were moderate in the emergency department the symptoms are unchanged. The patient has experienced similar episodes in the past, chronically. The patient has been recently seen at the [facility] Emergency Department, last week, The patient has been recently been admitted at [facility], by Dr. Gregory', was discharged last week. Daughter reports pt started having increased shortness of breath yesterday that got worse throughout the night. States pt uses home O2 at all times. No increase in sputum production. No fever. . Historical: - Allergies: 06:21 No Known Allergies; tl2 - Home Meds: 06:21 Carafate Oral [Active]; Daliresp 500 mcg Oral tab 1 tab once daily [Active]; other meds tl2 unknown [Active]; Prednisone Oral [Active]; ProAir HFA inhalation [Active]; Symbicort inhalation [Active]; Trazodone Oral [Active]; - PMHx: 06:21 Anxiety; breast cancer- remission; COPD; hiatal hernia; hypoxia; lymphoma- remission; tl2 overactive bladder; UTI; - Immunization history:: Adult Immunizations up to date. - Social history:: Smoking status: Patient uses tobacco products. - Ebola Screening: : No symptoms or risks identified at this time. ROS: 06:49 Constitutional: Negative for fever, chills, and weight loss, Abdomen/GI: Negative for kb abdominal pain, nausea, vomiting, diarrhea, and constipation, Back: Negative for injury and pain, : Negative for injury, bleeding, discharge, and swelling, MS/Extremity: Negative for injury and deformity, Skin: Negative for injury, rash, and discoloration, Neuro: Negative for headache, weakness, numbness, tingling, and seizure. 06:49 Respiratory: Positive for cough, dyspnea on exertion, shortness of breath, Negative for hemoptysis, orthopnea, pleurisy, wheezing. 06:50 Cardiovascular: Positive for chest pain, Negative for edema, orthopnea, palpitations, kb paroxysmal nocturnal dyspnea. Exam: 06:49 Constitutional: This is a well developed, well nourished patient who is awake, alert, kb and in no acute distress. Head/Face: Normocephalic, atraumatic. Chest/axilla: Normal chest wall appearance and motion. Nontender with no deformity. No lesions are appreciated. Cardiovascular: Regular rate and rhythm with a normal S1 and S2. No gallops, murmurs, or rubs. Normal PMI, no JVD. No pulse deficits. Abdomen/GI: Soft, non-tender, with normal bowel sounds. No distension or tympany. No guarding or rebound. No evidence of tenderness throughout. Back: No spinal tenderness. No costovertebral tenderness. Full range of motion. Skin: Warm, dry with normal turgor. Normal color with no rashes, no lesions, and no evidence of cellulitis. MS/ Extremity: Pulses equal, no cyanosis. Neurovascular intact. Full, normal range of motion. Neuro: Awake and alert, GCS 15, oriented to person, place, time, and situation. Cranial nerves II-XII grossly intact. Motor strength 5/5 in all extremities. Sensory grossly intact. Cerebellar exam normal. Normal gait. 06:49 Respiratory: mild respiratory distress is noted, Respirations: labored breathing, that is mild, Breath sounds: shallow breathing noted, lungs clear. Vital Signs: 06:21 BP 149 / 87; Pulse 67; Resp 26; Temp 98.6(O); Pulse Ox 96% on 2 lpm NC; Weight 72.57 tl2 kg; Height 5 ft. 4 in. (162.56 cm); 06:47 Pulse 77; Resp 25 S; Pulse Ox 100% on Nebulizer Mask; jd3 07:00 BP 117 / 95; Pulse 126; Resp 27 S; Pulse Ox 100% on Nebulizer Mask; jd3 07:45 BP 149 / 71; Pulse 145; Resp 22; Pulse Ox 100% on BiPAP; ph 07:51 hb 08:11 BP 134 / 91; Pulse 103; ph 08:12 BP 134 / 91; Pulse 110; Resp 20; Pulse Ox 99% on 30% BiPAP; ph 09:04 BP 127 / 73; Pulse 87; Resp 22; Pulse Ox 97% on 30% BiPAP; ph 10:00 BP 116 / 65; Pulse 79; Resp 16; Pulse Ox 98% on 30% BiPAP; ph 11:09 BP 113 / 62; Pulse 82; Resp 20; Temp 97.9; Pulse Ox 97% on 30% BiPAP; ph 06:21 Body Mass Index 27.46 (72.57 kg, 162.56 cm) tl2 07:51 BIPAP 12/6, R 12, FiO2 30% hb MDM: 06:29 Patient medically screened. kb 06:50 Data reviewed: vital signs, nurses notes. Data interpreted: Pulse oximetry: on room air kb is 100 %. Interpretation: normal. 09:10 Counseling: I had a detailed discussion with the patient and/or guardian regarding: the kb historical points, exam findings, and any diagnostic results supporting the discharge/admit diagnosis, lab results, the need for further work-up and treatment in the hospital, Pt and family request not to be admitted to Dr Gregory, would like to see the "staff doctor.". Physician consultation: Physician consultation: Jamarcus Jacobsen DO was contacted at 09:11, regarding admission, to the telemetry unit. and will see patient in ED, shortly. 11/03 06:30 Order name: Blood Culture Adult (2) 11/03 06:30 Order name: BMP; Complete Time: 07:39 11/03 06:30 Order name: CBC with Diff; Complete Time: 07:52 11/03 06:30 Order name: CPK; Complete Time: 07:39 11/03 06:30 Order name: Hepatic Function; Complete Time: 07:39 11/03 06:30 Order name: Lipase; Complete Time: 07:39 11/03 06:30 Order name: XRAY CXR (1 view); Complete Time: 10:24 11/03 06:30 Order name: Magnesium; Complete Time: 07:39 11/03 06:30 Order name: NT PRO-BNP; Complete Time: 07:39 11/03 06:30 Order name: PT-INR; Complete Time: 07:23 11/03 06:30 Order name: Troponin (emerg Dept Use Only); Complete Time: 07:39 11/03 07:23 Order name: BIPAP rn 11/03 07:31 Order name: CBC Smear Scan; Complete Time: 07:52 EDMS 11/03 06:30 Order name: EKG; Complete Time: 06:31 11/03 06:30 Order name: Cardiac monitoring; Complete Time: 06:34 11/03 06:30 Order name: EKG - Nurse/Tech; Complete Time: 06:34 11/03 06:30 Order name: IV Saline Lock; Complete Time: 06:34 11/03 06:30 Order name: Labs collected and sent; Complete Time: 06:49 11/03 06:30 Order name: O2 Per Protocol; Complete Time: 06:34 11/03 06:30 Order name: O2 Sat Monitoring; Complete Time: 06:34 11/03 09:09 Order name: EKG; Complete Time: 09:09 kb 11/03 09:09 Order name: EKG - Nurse/Tech; Complete Time: 10:24 kb Administered Medications: 06:45 Drug: SOLU-Medrol 125 mg Route: IVP; Site: left wrist; jd3 08:11 Follow up: Response: No adverse reaction ph 06:46 Drug: DuoNeb (3:1) (2.5 mg - 0.5 mg) 3 ml Route: Nebulizer; jd3 08:10 Follow up: Response: No adverse reaction ph 07:42 Drug: Metoprolol 25 mg Route: PO; ph 08:11 Follow up: BP 134 / 91; Pulse 103 bpm; Response: No adverse reaction; Cardiac rhythm ph changed 07:42 Drug: Magnesium Sulfate 1 grams Route: IVPB; Infused Over: 1 hrs; Site: left wrist; ph 08:12 Follow up: Response: No adverse reaction; IV Status: Completed infusion ph 11:09 Drug: Potassium Chloride 40 mEq Route: PO; ph Disposition: 11/04 08:22 Co-signature as Attending Physician, Cornell Chow MD I agree with the assessment and dc plan of care. Disposition: 11/03/17 09:13 Hospitalization ordered by Jamarcus Jacobsen for Inpatient Admission. Preliminary diagnosis is Chronic obstructive pulmonary disease with (acute) exacerbation. - Bed requested for Telemetry/MedSurg (Inpatient). - Status is Inpatient Admission. ph - Condition is Stable. - Problem is new. - Symptoms are unchanged. UTI on Admission? No Signatures: Dispatcher [employer] EDKY Nicole Ann, JAZMINE-C METAL SPRAYER [employer]ACHIN[employer]S-CkGo Saucedo MD MD rn Hall, Patricia, RN RN Bonnie Hall RN RN tl2 Herlinda Ramirez RN RN df Appiah, William, MD MD wa Davies, Jonathon, RN RN jd3 Botello, Elizabeth eb Corrections: (The following items were deleted from the chart) 11/03 06:51 06:49 Constitutional: Negative for fever, chills, and weight loss, Cardiovascular: kb Negative for chest pain, palpitations, and edema, Abdomen/GI: Negative for abdominal pain, nausea, vomiting, diarrhea, and constipation, Back: Negative for injury and pain, : Negative for injury, bleeding, discharge, and swelling, MS/Extremity: Negative for injury and deformity, Skin: Negative for injury, rash, and discoloration, Neuro: Negative for headache, weakness, numbness, tingling, and seizure, kb 09:41 09:13 Hospitalization Ordered by Jamarcus Jacobsen DO for Observation. Preliminary df diagnosis is Chronic obstructive pulmonary disease with (acute) exacerbation. Bed requested for Telemetry/MedSurg (observation). Status is Observation. Condition is Stable. Problem is new. Symptoms are unchanged. UTI on Admission? No. kb 09:51 09:41 11/03/2017 09:13 Hospitalization Ordered by aJmarcus Jacobsen DO for Observation. eb Preliminary diagnosis is Chronic obstructive pulmonary disease with (acute) exacerbation. Bed requested for Telemetry/MedSurg (observation). Status is Observation. Condition is Stable. Problem is new. Symptoms are unchanged. UTI on Admission? No. df 10:04 09:51 11/03/2017 09:13 Hospitalization Ordered by Jamarcus Jacobsen DO for Inpatient kb Admission. Preliminary diagnosis is Chronic obstructive pulmonary disease with (acute) exacerbation. Bed requested for Telemetry/MedSurg (observation). Status is Inpatient Admission. Condition is Stable. Problem is new. Symptoms are unchanged. UTI on Admission? No. eb 11:01 10:04 11/03/2017 09:13 Hospitalization Ordered by Jamarcus Jacobsen DO for Inpatient eb Admission. Preliminary diagnosis is Chronic obstructive pulmonary disease with (acute) exacerbation. Bed requested for Telemetry/MedSurg (Inpatient). Status is Inpatient Admission. Condition is Stable. Problem is new. Symptoms are unchanged. UTI on Admission? No. kb 11:46 11:01 11/03/2017 09:13 Hospitalization Ordered by Jamarcus Jacobsen DO for Inpatient ph Admission. Preliminary diagnosis is Chronic obstructive pulmonary disease with (acute) exacerbation. Bed requested for Telemetry/MedSurg (Inpatient). Status is Inpatient Admission. Condition is Stable. Problem is new. Symptoms are unchanged. UTI on Admission? No. eb
--- NOTE | 2017-11-03 09:14 | ER ---
Nurse's Notes [facility] Name: Jessenia Bailey Age: 87 yrs Sex: Female : 1930 Arrival Date: 11/03/2017 Time: 06:10 Bed 8 Private MD: Bill Gregory R Diagnosis: Chronic obstructive pulmonary disease with (acute) exacerbation Presentation: 11/03 06:18 Presenting complaint: Child states: "She's been having difficulty breathing since tl2 yesterday but it got worse this morning." Pt c/o cough and shortness of breath. Transition of care: patient was not received from another setting of care. Onset of symptoms was November 02, 2017. Risk Assessment: Do you want to hurt yourself or someone else? Patient reports no desire to harm self or others. Initial Sepsis Screen: Does the patient meet any 2 criteria? No. Patient's initial sepsis screen is negative. Does the patient have a suspected source of infection? No. Patient's initial sepsis screen is negative. Care prior to arrival: None. 06:18 Method Of Arrival: Wheelchair tl2 06:18 Acuity: IVETH 2 tl2 Triage Assessment: 06:21 General: Appears in no apparent distress. uncomfortable, Behavior is cooperative, tl2 appropriate for age, anxious. Pain: Denies pain. Neuro: Level of Consciousness is awake, alert, obeys commands, Oriented to person, place, time, situation. Cardiovascular: Denies chest pain. Respiratory: Reports shortness of breath cough that is labored breathing pain with cough pain with respiration Respiratory effort is even, labored, pursed lip, using tripod position, Respiratory pattern is tachypnea Onset: The symptoms/episode began/occurred yesterday, the patient has moderate shortness of breath. GI: No signs and/or symptoms were reported involving the gastrointestinal system. : No signs and/or symptoms were reported regarding the genitourinary system. Derm: Skin is pink, warm \\T\\ dry. Historical: - Allergies: 06:21 No Known Allergies; tl2 - Home Meds: 06:21 Carafate Oral [Active]; Daliresp 500 mcg Oral tab 1 tab once daily [Active]; other meds tl2 unknown [Active]; Prednisone Oral [Active]; ProAir HFA inhalation [Active]; Symbicort inhalation [Active]; Trazodone Oral [Active]; - PMHx: 06:21 Anxiety; breast cancer- remission; COPD; hiatal hernia; hypoxia; lymphoma- remission; tl2 overactive bladder; UTI; - Immunization history:: Adult Immunizations up to date. - Social history:: Smoking status: Patient uses tobacco products. - Ebola Screening: : No symptoms or risks identified at this time. Screenin:24 Abuse screen: Denies threats or abuse. Nutritional screening: No deficits noted. tl2 Tuberculosis screening: No symptoms or risk factors identified. Fall Risk Fall in past 12 months (25 points). Assessment: 06:29 General: Appears uncomfortable, Behavior is cooperative, anxious. Pain: Complains of jd3 pain in chest Quality of pain is described as pressure. Neuro: Level of Consciousness is awake, alert, obeys commands, Oriented to person, place, time, situation, Weakness. Cardiovascular: Heart tones S1 S2 present Patient's skin is warm and dry. Rhythm is irregular. Respiratory: Reports shortness of breath at rest Airway is patent Respiratory effort is labored, Respiratory pattern is regular, symmetrical, Breath sounds are diminished. GI: Abdomen is round Bowel sounds present X 4 quads. Abd is soft and non tender X 4 quads. Reports nausea. : No signs and/or symptoms were reported regarding the genitourinary system. EENT: No signs and/or symptoms were reported regarding the EENT system. Derm: Skin is intact, Skin is dry, Skin is pale, Skin temperature is warm. Musculoskeletal: Circulation, motion, and sensation intact. 06:46 Reassessment: No changes from previously documented assessment. Patient and/or family jd3 updated on plan of care and expected duration. Pain level reassessed. lab at bedside drawing blood. 07:43 Reassessment: Patient appears in no apparent distress at this time. Patient and/or ph family updated on plan of care and expected duration. Pain level reassessed. Patient is alert, oriented x 3, equal unlabored respirations, skin warm/dry/pink. Pt placed on bi-pap per ERP order, tolerating well, provider aware of cardiac rhythm a-fib w/ rate 130-160, see MAR for orders Patient denies pain at this time. 09:05 Reassessment: Patient appears in no apparent distress at this time. Patient and/or ph family updated on plan of care and expected duration. Pain level reassessed. Patient is alert, oriented x 3, equal unlabored respirations, skin warm/dry/pink. Assisted pt to R side, pt resting quietly, bi-pap in place, cardiac rhythm has improved w/ rate decreased to 75-90, ERP at bedside to speak w/ pt and family about results. 10:30 Reassessment: Patient appears in no apparent distress at this time. Patient and/or ph family updated on plan of care and expected duration. Pain level reassessed. Pt asleep, respirations even and unlabored, awakens easily, denies pain at this time, awaiting room assignment, family at bedside, VSS, will continue to monitor Patient states symptoms have improved. 11:42 Reassessment: Patient appears in no apparent distress at this time. Patient and/or ph family updated on plan of care and expected duration. Pain level reassessed. Report called to 2nd floor, pt placed on NRB at 10L for transport, taken to inpatient room by cardio tech, accompanied by family. Vital Signs: 06:21 BP 149 / 87; Pulse 67; Resp 26; Temp 98.6(O); Pulse Ox 96% on 2 lpm NC; Weight 72.57 tl2 kg; Height 5 ft. 4 in. (162.56 cm); 06:47 Pulse 77; Resp 25 S; Pulse Ox 100% on Nebulizer Mask; jd3 07:00 BP 117 / 95; Pulse 126; Resp 27 S; Pulse Ox 100% on Nebulizer Mask; jd3 07:45 BP 149 / 71; Pulse 145; Resp 22; Pulse Ox 100% on BiPAP; ph 07:51 hb 08:11 BP 134 / 91; Pulse 103; ph 08:12 BP 134 / 91; Pulse 110; Resp 20; Pulse Ox 99% on 30% BiPAP; ph 09:04 BP 127 / 73; Pulse 87; Resp 22; Pulse Ox 97% on 30% BiPAP; ph 10:00 BP 116 / 65; Pulse 79; Resp 16; Pulse Ox 98% on 30% BiPAP; ph 11:09 BP 113 / 62; Pulse 82; Resp 20; Temp 97.9; Pulse Ox 97% on 30% BiPAP; ph 06:21 Body Mass Index 27.46 (72.57 kg, 162.56 cm) tl2 07:51 BIPAP 12/, R 12, FiO2 30% hb ED Course: 06:10 Patient arrived in ED. al2 06:10 Bill Gregory MD is Private Physician. al2 06:19 Triage completed. tl2 06:21 Arm band placed on right wrist. tl2 06:27 Inserted saline lock: 20 gauge in left wrist, using aseptic technique. jd3 06:28 Nathaniel Deutsch, RN is Primary Nurse. jb4 06:29 Nicole Ann [facility]-C [facility]. kb 06:29 Cornell Chow MD is Attending Physician. kb 06:29 Dex Patel RN is Primary Nurse. jd3 06:33 Patient has correct armband on for positive identification. Placed in gown. Bed in low jd3 position. Call light in reach. Side rails up X 1. Adult w/ patient. 06:47 X-ray completed. Portable x-ray completed in exam room. Patient tolerated procedure kp1 well. 06:51 XRAY CXR (1 view) In Process Unspecified. EDMS 09:12 Jamarcus Jacobsen DO is Hospitalizing Provider. kb 11:11 No provider procedures requiring assistance completed. Patient admitted, IV remains in ph place. Administered Medications: 06:45 Drug: SOLU-Medrol 125 mg Route: IVP; Site: left wrist; jd3 08:11 Follow up: Response: No adverse reaction ph 06:46 Drug: DuoNeb (3:1) (2.5 mg - 0.5 mg) 3 ml Route: Nebulizer; jd3 08:10 Follow up: Response: No adverse reaction ph 07:42 Drug: Metoprolol 25 mg Route: PO; ph 08:11 Follow up: BP 134 / 91; Pulse 103 bpm; Response: No adverse reaction; Cardiac rhythm ph changed 07:42 Drug: Magnesium Sulfate 1 grams Route: IVPB; Infused Over: 1 hrs; Site: left wrist; ph 08:12 Follow up: Response: No adverse reaction; IV Status: Completed infusion ph 11:09 Drug: Potassium Chloride 40 mEq Route: PO; ph Outcome: 09:13 Decision to Hospitalize by Provider. kb 11:46 Admitted to Tele accompanied by tech, family with patient, via stretcher, room 215, ph with oxygen, with chart. 11:46 Condition: stable 11:46 Patient left the ED. ph Signatures: Dispatcher [employer] EDMS Nicole Ann, TRANSFORMER MECHANIC-C TRANSFORMER MECHANIC-Rebecca Jones RN RN ph Elizabeth Harrison RN RN Bonnie Hall RN RN tl2 Nathaniel Deutsch RN RN jb4 Sandi Marcelino kp1 Dex Patel RN RN jjd Benavidez, Anat jose2 Corrections: (The following items were deleted from the chart) 06:47 06:29 Cardiovascular: Heart tones S1 S2 present Patient's skin is warm and dry. ozzy [id number]
[2017-11-03] MEDS ORDERED: ONDANSETRON 4 MG/2 ML VIAL IV PRN (10:05)
[2017-11-03] MEDS ORDERED: ALBUTEROL 2.5 MG/3 ML NEB SOL NEB PRN (10:05)
--- NOTE | 2017-11-03 10:19 | RAD REPORT ---
EXAM DESCRIPTION: RAD - Chest Single View - 11/03/2017 9:37 am CLINICAL HISTORY: SOB Chest pain. COMPARISON: Chest Single View dated 10/23/2017; Chest Single View dated 05/13/2017; Chest Single View dated 09/06/2015; Chest Single View dated 07/13/2015 FINDINGS: Portable technique limits examination quality. The emphysematous changes are present with fibrosis. The heart is normal in size. Lower thoracic spin e hardware is present.Left-sided PICC line has its tip in the right atrium, unchanged. 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
--- NOTE | 2017-11-03 10:21 | P.HP ---
Certification for Inpatient Patient admitted to: Inpatient With expected LOS: >2 Midnights Patient will require the following post-hospital care: Other Practitioner: I am a practitioner with admitting privileges, knowledge of patient current condition, hospital course, and medical plan of care. Services: Services provided to patient in accordance with Admission requirements found in Title 42 Section 412.3 of the Code of Federal Regulations Patient History Date of Service: 11/03/17 Primary Care Provider: Dr. Gregory(Plan to use another PCP soon); Pulm-Dr. Stephenson;Card-Dr. Spangler Reason for admission: Shortness of breath History of Present Illness: 87-year-old female present emergency room with increasing shortness of breath. Patient was recently hospitalized for COPD exacerbation. Patient with history of COPD end-stage requiring home oxygen and chronic steroids. Patient also with history of atrial fibrillation not on chronic anti coagulation therapy due to risks, hypertension. Most information came from the daughter who was at bedside. Patient had been having increasing shortness of breath. She was having more difficulty breathing today. No fever, chills noted. Patient came to the ER for further evaluation. In the ER patient was found to be hypoxic. Patient required BiPAP due to difficulty breathing. Blood pressure stable. On lab white count 11.9, hemoglobin 14. Sodium 137, potassium 3.2. BUN of 24, creatinine 0.9. Blood sugar 118. CK of 24, troponin 0.09 with a BNP of 1004 in 22. Lipase unremarkable. Chest x-ray showed no significant pneumonia. Prior echocardiogram done done in September of 2017 showed ejection fraction 74%. Due to the findings patient was admitted for further evaluation and treatment. When I saw the patient the ER, she was on BiPAP. She did not appear in any respiratory distress. She appeared improved. Daughter at bedside. Daughter understands the patient has end-stage COPD. She was trying to get pulmonology to give her Brovana as an outpatient. This was difficult as the patient is wheelchair-bound and not able to go to his office for refill. Patient was recently hospitalized for COPD exacerbation and atrial fibrillation. Patient was placed on diltiazem. No chronic anti coagulation therapy was recommended at that time due to risk of fall and bleeding. Allergies No Known Allergies Allergy (Verified 05/14/17 00:02) Home medications list reviewed: Yes Home Medications: Budesonide/Formoterol Fumarate [Symbicort 160-4.5 Mcg Inhaler] 2 puff IH DAILY 09/06/15 Aspirin Chewable [Aspirin Chewable*] 81 mg PO BEDTIME 08/04/16 Cholecalciferol (Vitamin D3) [Vitamin D3] 5,000 unit PO BEDTIME 08/04/16 Melatonin [Melatonin*] 3 mg PO BEDTIME 08/04/16 Albuterol Sulfate [Albuterol Sulfate 0.083% Neb Soln] 2.5 mg IH Q4H PRN #60 ml 05/14/17 Ipratropium Neb [Atrovent*] 0.5 mg IH Q4H PRN #30 amp 05/14/17 Methylprednisolone [Medrol dosepack] 4 mg PO DAILY 10/23/17 Omeprazole [Prilosec] 40 mg PO DAILY 10/23/17 Theophylline Anhydrous [Juancho-24] 200 mg PO BID 10/23/17 Diltiazem Cd [Cardizem Cd] 120 mg PO DAILY #90 cap 10/26/17 Levofloxacin [Levaquin] 500 mg PO DAILY #5 tablet 10/26/17 Methylprednisolone [Medrol dosepack] 4 mg PO DIRECTED #1 jhoan 10/26/17 - Past Medical/Surgical History Diabetic: No -: COPD, end-stage, oxygen-dependent, chronic steroid dependent -: Osteoporosis -: History of Compression fractures -: History of Breast Ca -: History of Spinal Ca -: Atrial fibrillation not on chronic anti coagulation therapy -: Wheelchair-bound -: Former tobacco use -: Lymphoma -: Right breast mastectomy -: Left femur repair -: Cholecystectomy -: Spinal surgery Psychosocial/ Personal History: Patient lives with her daughter. She is a . She has 5 children. She no longer smokes. - Family History Sister -: Hypertension, Diabetes Mother -: Diabetes - Social History Smoking Status: Former smoker Alcohol use: No CD- Drugs: No Caffeine use: Yes Place of Residence: Home Review of Systems General: Weakness, Malaise Eyes: Unremarkable ENT: Unremarkable Respiratory: Shortness of Breath, SOB with Excertion, As per HPI Cardiovascular: Unremarkable Gastrointestinal: Unremarkable Musculoskeletal: Unremarkable Integumentary: Unremarkable Neurological: As per HPI Lymphatics: Unremarkable Physical Examination - Physical Exam General: Alert, In no apparent distress, Oriented x3, Cooperative HEENT: Atraumatic, Normocephalic, Mucous membr. moist/pink Neck: Supple, No Thyromegaly Respiratory: Diminished (Diminished bilateral), Expiratory wheezes (Bilateral) Cardiovascular: Irregular heart rate/rhythm (Atrial fibrillation, rate around 90 -100) Gastrointestinal: Normal bowel sounds, Soft and benign, Non-distended, No tenderness, No masses, No rebound, No guarding Musculoskeletal: No erythema, No tenderness, No warmth Integumentary: No tenderness/swelling, No erythema, No warmth, No cyanosis Neurological: Normal speech, Normal strength at 5/5 x4 extr, Normal tone, Normal affect - Studies Laboratory Data (last 24 hrs) 11/03/17 06:50: PT 10.5, INR 0.89 11/03/17 06:50: WBC 11.9 H D, Hgb 14.3, Hct 43.6, Plt Count 197 11/03/17 06:50: Sodium 137, Potassium 3.2 L, BUN 24 H, Creatinine 0.90, Glucose 118 H, Magnesium 2.4, Total Bilirubin 0.9, AST 13 L, ALT 22, Alkaline Phosphatase 72, Lipase 337 Assessment and Plan - Plan Impression: Shortness of breath secondary to acute on chronic respiratory distress with hypoxia with noted end-stage COPD, oxygen dependent/steroid dependent. Atrial fibrillation not on chronic anti coagulation therapy due to risk of falls and bleeding Osteoporosis History of lymphoma Wheelchair-bound GERD Plan: Patient presents with shortness of breath secondary to acute on chronic respiratory distress with hypoxia with noted end-stage COPD, oxygen/steroid dependent. Patient currently on BiPAP. Will wean off BiPAP at this time. Will start IV steroids. Will continue with COPD treatment. Patient has been trying to get refills of Brovana as an outpatient. Will have mental health social worker help in this process since she is wheelchair-bound and not able to attend her doctor's appointments. Pulmonology consulted to further assess. Respiratory to wean her off BiPAP. Will recheck chest x-ray in the morning. No need for antibiotics at this time as I suspect this is all COPD related. Will continue with diltiazem as this was recently started for atrial fibrillation. No chronic anti coagulation therapy is recommended at this time due to risk of fall and bleeding. Will start Lovenox full dose while the patient is in the hospital. Patient has been recently evaluated by Cardiology. Echocardiogram unremarkable. No cardiac intervention was required at that time. Cardiology consulted to further address. Troponin slightly elevated likely from her COPD exacerbation. Will monitor this closely. Will continue with PPI. Case discussed at length with patient and daughter. Both understand that the patient has end-stage COPD. A discussion about hospice was addressed in detail. They are to think about this more. Will discuss with pulmonology. Advanced directives address in detail. Patient wishes to be DNR. - Advance Directives Does patient have a Living Will: No Does patient have a Durable POA for Healthcare: No - Code Status/Comfort Care Code Status Assessed: Yes (Patient DNR) Time Spent Managing Pts Care (In Minutes): 55
[2017-11-03] MEDS ORDERED: POTASSIUM CL SA 10 MEQ TAB PO ONE ×2 (11:33)
[2017-11-03 12:06] VITALS: BMI 27.3
[2017-11-03] MEDS ORDERED: MAGNES/ALUMIN/SIMET 30ML UCUP PO PRN (12:43)
[2017-11-03] MEDS: ENOXAPARIN 80 MG/0.8 ML SQ SCH ×2 (13:09→22:02)
[2017-11-03] MEDS ORDERED: PNEUMOCOCCAL VACCINE 0.5 ML IMVAC ONE (14:00)
[2017-11-03 17:15] LABS: CKMB Creatine Kinase MB 1.1 ng/mL (0.3-3.6); Troponin I 0.06 ng/mL (0.0-0.045)
[2017-11-03] MEDS: METHYLPREDNISOLONE 40 MG INJ IV SCH (17:46)
[2017-11-03] MEDS: ACETAMINOPHEN 500 MG TAB PO PRN (19:28)
[2017-11-03 20:32] LABS: Urine Appearance CLEAR; Urine Bilirubin NEGATIVE (NEG); Urine Blood NEGATIVE (NEG); Urine Color YELLOW; Urine Glucose TRACE (NEG); Urine Protein NEGATIVE (NEG); Urine Urobilinogen 0.2 mg/dL (0.2-1.0)
[2017-11-03 20:33] LABS: Urine Microscopic Reflex NO UMIC
[2017-11-03] MEDS: ARFORMOTEROL TARTRATE 15 MCG/2 ML VIAL.NEB NEB SCH (21:30)
[2017-11-03] MEDS: ALPRAZOLAM 0.25 MG TABLET PO PRN (22:02)
[2017-11-04] MEDS: METHYLPREDNISOLONE 40 MG INJ IV SCH ×3 (01:23→16:00)
[2017-11-04 01:39] LABS: CKMB Creatine Kinase MB 1.1 ng/mL (0.3-3.6); Troponin I 0.06 ng/mL (0.0-0.045)
[2017-11-04 05:18] LABS: Absolute Lymphocytes (CBC) 0.2 K/uL (0.7-4.9); Absolute Monocytes 0.3 K/uL (0.1-1.3); Absolute Neutrophil 8.7 K/uL (1.8-8.0); Basophils % 0.1 % (0-1.3); Hematocrit 36.7 % (36.0-45.0); Lymphocytes % 2.5 % (15.3-44.8); MCH 29.3 pg (27.0-35.0); MCV 86.6 fL (80-100); MPV 8.9 fL (7.6-11.3); Monocytes % 2.8 % (3.3-12.3); RBC Red Blood Cell Count 4.24 M/uL (3.86-4.86)
[2017-11-04 05:32] LABS: Magnesium 2.7 mg/dL (1.8-2.4); Potassium 4.5 mmol/L (3.5-5.1)
[2017-11-04] MEDS: PANTOPRAZOLE 40MG TABLET PO SCH (06:21)
[2017-11-04] MEDS: ARFORMOTEROL TARTRATE 15 MCG/2 ML VIAL.NEB NEB SCH ×2 (07:54→20:06)
--- NOTE | 2017-11-04 08:55 | EKG ---
Test Date: 2017-11-03 Test Time: 09:15:45 Commercial Technician: JOHAN MEASUREMENT RESULTS: Intervals: Rate: 74 DE: 134 QRSD: 76 QT: 392 QTc: 435 [place]: P: 71 DE: 134 QRS: 65 T: 81 INTERPRETIVE STATEMENTS: Sinus rhythm with premature atrial complexes with aberrant conduction Otherwise normal ECG Compared to ECG 11/03/2017 06:34:15 Atrial premature complex(es) now present Aberrant conduction of supraventricular beat(s) now present Sinus tachycardia no longer present Ventricular premature complex(es) no longer present Myocardial infarct finding no longer present Electronically Signed On 11-04-17 08:52:52 CDT by Chito Spangler
--- NOTE | 2017-11-04 08:55 | EKG ---
Test Date: 2017-11-03 Test Time: 06:34:15 Manager Mining: STEPHANIE MEASUREMENT RESULTS: Intervals: Rate: 133 [place]: QRSD: 68 QT: 360 QTc: 535 [place]: P: 72 OK: QRS: 47 T: 50 INTERPRETIVE STATEMENTS: Sinus tachycardia with 2nd degree AV block (Mobitz I) with frequent premature ventricular complexes Possible Inferior infarct, age undetermined Possible Anterior infarct, age undetermined Abnormal ECG Compared to ECG 10/24/2017 09:01:35 Ventricular premature complex(es) now present Sinus rhythm no longer present Atrial premature complex(es) no longer present Myocardial infarct finding still present Electronically Signed On 11-04-17 08:53:04 CDT by Chito Spangler
--- NOTE | 2017-11-04 08:55 | P.PN ---
Subjective Date of Service: 11/04/17 Primary Care Provider: Dr. Gregory(Plan to use another PCP soon); Pulm-Dr. Stephenson;Card-Dr. Spangler Chief Complaint: Shortness of breath Subjective: Improving (Patient shows improvement. Less short of breath noted today. Patient being weaned off BiPAP. Patient on nasal cannula this morning.) Physical Examination - Vital Signs Temperature: 98.2 F Blood Pressure: 124/72 Pulse: 83 Respirations: 18 Pulse Ox (%): 97 - Physical Exam General: Alert, In no apparent distress, Oriented x3, Cooperative HEENT: Atraumatic Neck: Supple Respiratory: Expiratory wheezes (Bilateral), Other (Patient with severe COPD, poor air movement bilateral, poor inspiration and expiration.) Cardiovascular: Normal pulses, Regular rate/rhythm Gastrointestinal: Normal bowel sounds, Soft and benign, Non-distended, No tenderness, No masses, No rebound, No guarding Musculoskeletal: No erythema, No tenderness, No warmth Integumentary: No erythema, No warmth, No cyanosis Neurological: Normal speech, Normal strength at 5/5 x4 extr, Normal tone, Normal affect - Studies Medications List Reviewed: Yes Assessment & Plan Discharge Plan: Home Plan to discharge in: 24 Hours Physician Review Additional Text: Impression: Shortness of breath secondary to acute on chronic respiratory failure with hypoxia with noted end-stage COPD, oxygen/steroid dependent Atrial fibrillation not on chronic anti coagulation therapy due to risk of falls GERD Mild renal insufficiency likely dehydration History of lymphoma Osteoporosis Wheelchair-bound Plan: Patient presented with acute on chronic respiratory failure with hypoxia with noted end-stage COPD, oxygen/steroid dependent. Patient continues to improve. Wean off BiPAP. Patient currently on IV steroids and COPD medication. Anticipate significant improvement by tomorrow. Likely discharge tomorrow with home oxygen. Atrial fibrillation now controlled. Patient in normal sinus rhythm. Patient not on chronic anti coagulation therapy at home due to risk of falls. Patient on anti coagulation therapy during the hospitalization. Continue with PPI. Encourage intake. Advanced directives address in detail with the family yesterday. Patient desires to be DNR. Family will respect this decision. Will readdress the issue of possible hospice at discharge. Pulmonology consulted await further recommendation. Time Spent Managing Pts Care (In Minutes): 55
[2017-11-04] MEDS: ENOXAPARIN 80 MG/0.8 ML SQ SCH ×2 (09:02→21:25)
[2017-11-04] MEDS: DILTIAZEM HCL 120 MG SR CAP PO SCH (09:02)
[2017-11-04] MEDS: ACETAMINOPHEN 500 MG TAB PO PRN (09:10)
--- NOTE | 2017-11-04 14:07 | RAD REPORT ---
EXAM DESCRIPTION: RAD - Chest Single View - 11/04/2017 1:56 pm CLINICAL HISTORY: COPD COMPARISON: November 03 TECHNIQUE: AP portable chest image was obtained 1346 hours . FINDINGS: Fibrotic interstitial lung disease is present similar to comparison. Mild edema or infiltr ate could be masked by the chronic pattern. No new mass or consolidations seen. Mediastinum is distor nicolette by rotation. Hiatal hernia remains present. Heart size is prominent but stable. Vasculature also stable. No pneumothorax or enlarging pleural effusion. No gross bony abnormality seen. No acute aorti c findings suspected. IMPRESSION: Chronic pleural and parenchymal changes are present similar to comparison. No new or progressive finding since November 03.
[2017-11-04] MEDS: ALPRAZOLAM 0.25 MG TABLET PO PRN ×2 (18:00→21:24)
[2017-11-05] MEDS: METHYLPREDNISOLONE 40 MG INJ IV SCH (00:43)
[2017-11-05] MEDS: IPRATROPIUM BROM 0.5MG/2.5ML NEB PRN ×2 (02:59→22:35)
[2017-11-05 05:42] LABS: Magnesium 2.4 mg/dL (1.8-2.4); Potassium 4.8 mmol/L (3.5-5.1)
[2017-11-05 05:50] LABS: Absolute Lymphocytes (CBC) 0.5 K/uL (0.7-4.9); Absolute Monocytes 0.4 K/uL (0.1-1.3); Basophils % 0.1 % (0-1.3); Hematocrit 27.2 % (36.0-45.0); Lymphocytes % 3.8 % (15.3-44.8); MCV 85.8 fL (80-100); MPV 9.1 fL (7.6-11.3); Monocytes % 3.2 % (3.3-12.3); RBC Red Blood Cell Count 3.18 M/uL (3.86-4.86)
[2017-11-05] MEDS: PANTOPRAZOLE 40MG TABLET PO SCH (06:53)
[2017-11-05] MEDS: ARFORMOTEROL TARTRATE 15 MCG/2 ML VIAL.NEB NEB SCH ×2 (07:51→20:31)
[2017-11-05 07:57] LABS: Hematocrit 28.9 % (36.0-45.0)
[2017-11-05 08:08] LABS: Ferritin 130.5 ng/mL (8-388)
--- NOTE | 2017-11-05 08:13 | RAD REPORT ---
EXAM DESCRIPTION: RAD - Chest Single View - 11/05/2017 7:37 am CLINICAL HISTORY: COPD, shortness of breath COMPARISON: November 04 TECHNIQUE: AP portable chest image was obtained 0723 hours . FINDINGS: Chronic fibrotic an obstructive lung pattern has not changed. No new mass or infiltrate. H eart size is prominent but stable. Pulmonary vasculature within normal limits. No change to the known hiatal hernia. Port-A-Cath remains in place on the left. Costophrenic angle blunting is present but stable. No pneumothorax. IMPRESSION: Fibrotic an obstructive lung changes similar to prior imaging. Above detailed chest findings are stable from November 04.
--- NOTE | 2017-11-05 08:14 | CON ---
Date of Consultation: 11/04/[address] Jacobsen on 11/03/2017. I saw the patient on 11/04/2017. Reason For Consultation: Atrial fibrillation, elevated troponin. History Of Present Illness: Mrs. Bailey is an 87-year-old white woman just discharged from the [facility] l October 23, 2017, when she was here for COPD exacerbation and anxiety. She was sent home on Xanax i n addition to her home medication, came back with shortness of breath. She has chronic atrial fibril lation. The patient is a DNR. Denied any chest pain, nausea, vomiting, diaphoresis. Denied any PND , orthopnea, or pedal edema. Denied any palpitation or syncope. Main complaint was shortness of matt ath, was found to have mildly elevated troponin of 0.06 times 3, not consistent with acute coronary s yndrome. Past Medical History: Include hypertension, COPD, gastroesophageal reflux disease, anxiety, history of breast cancer in the past that has resolved. Allergies: NONE. Review of Systems: Negative. Social History: Negative. Family History: Negative. Medications: Include inhalers, diltiazem, steroids, theophylline, and Prilosec. Physical Examination: General: She appeared her stated age. Vital Signs: Stable. She was in atrial fibrillation at a rate of 90. HEENT: Negative. Neck: Supple without any bruit, lymphadenopathy, JVD, or thyromegaly. Chest: Revealed wheezing on expiration. No rales. Cardiac: Revealed atrial fibrillation with aortic sclerosis murmur. No gallops or rubs. Abdomen: Benign. Extremities: Revealed no clubbing, cyanosis, or edema. Skin: Dry. Pulses are adequate. Diagnostic Data: As stated earlier, and her BNP was 1422. An echocardiogram that was done last week was normal. Impression And Plan: 1.Chronic obstructive pulmonary disease exacerbation. 2.Chronic atrial fibrillation, rate controlled. 3.Anxiety. 4.Hypertension, well controlled. 5.Gastroesophageal reflux disease. 6.History of breast cancer that was cured. I do not want to repeat any further cardiac workup on Mrs. Bailey. I think she needs to have her COPD treated and her anxiety issues. There is no evidence of congestive heart failure on her examination. MAYRA/MODL Voice ID: [id number] Report ID: [id number]
[2017-11-05 08:55] LABS: Blood Morphology Comment NOT SEEN (NOT SEEN); Platelet Estimate ADEQ
[2017-11-05] MEDS: DILTIAZEM HCL 120 MG SR CAP PO SCH (09:00)
[2017-11-05] MEDS: predniSONE 20 MG TAB PO SCH ×2 (09:03→20:57)
--- NOTE | 2017-11-05 12:34 | P.PN ---
Subjective Date of Service: 11/05/17 Primary Care Provider: Dr. Gregory(Plan to use another PCP soon); Pulm-Dr. Stephenson;Card-Dr. Spangler Chief Complaint: Shortness of breath Subjective: Other (Patient stable at this time. Patient still requiring BiPAP at times. Currently on 2 L per nasal cannula.) Physical Examination - Vital Signs Temperature: 97.7 F Blood Pressure: 139/79 Pulse: 115 Respirations: 20 Pulse Ox (%): 93 - Physical Exam General: Alert, Cooperative HEENT: Atraumatic Neck: Supple Respiratory: Diminished (Bilateral), Expiratory wheezes (Bilateral), Other ( Poor inspiration and expiration) Cardiovascular: Irregular heart rate/rhythm (Atrial fibrillation) Gastrointestinal: Normal bowel sounds, Soft and benign, Non-distended, No tenderness, No masses, No rebound, No guarding Musculoskeletal: No erythema, No warmth Integumentary: No erythema, No warmth, No cyanosis Neurological: Normal speech, Normal strength at 5/5 x4 extr, Normal tone, Normal affect - Studies Medications List Reviewed: Yes Assessment & Plan Discharge Plan: Home (With hospice) Plan to discharge in: 24 Hours Physician Review Additional Text: Impression: Shortness of breath secondary to acute on chronic respiratory failure with hypoxia with noted end-stage COPD, oxygen/steroid dependent Atrial fibrillation not on chronic anti coagulation therapy due to risk of falls GERD Mild renal insufficiency likely dehydration Anemia with B12 deficiency History of lymphoma Osteoporosis Wheelchair-bound Plan: Patient currently stable at this time. Patient still requires BiPAP at times. Currently on 2 L per nasal cannula. Patient with end-stage COPD, oxygen and steroid dependent. Case discussed with pulmonology. Case also discussed with patient and family. Both desire hospice. Will make arrangements for hospice. Family is to decide on agency. Anticipate discharge tomorrow on hospice once arrangements have been made. Hospice is to evaluate patient. Patient be comes hypoxic with movement. Patient may require inpatient hospice but prefers hospice at home. Patient currently DNR. Patient with atrial fibrillation. Patient had been on Lovenox full dose during the hospital. Will discontinue Lovenox due to anemia. Repeat H&H stable. Patient does not require chronic anti coagulation therapy at discharge. Cardiology recommends no further intervention. Patient with mild renal sufficiency currently stable this time. Encourage oral intake. Patient with anemia with B12 deficiency. Will add B12 vitamin. H&H stable. Discontinue Lovenox. I will turn the service over to Dr. Gerber tomorrow. I will go over the plan of care with her. Time Spent Managing Pts Care (In Minutes): 55
[2017-11-05] MEDS ORDERED: TRAMADOL HCL 50 MG TAB PO PRN (17:17)
[2017-11-05] MEDS ORDERED: HYDROCODONE/APAP 7.5/325 MG TAB PO PRN (17:20)
[2017-11-05] MEDS: ALPRAZOLAM 0.25 MG TABLET PO PRN (22:32)
[2017-11-06 05:00] LABS: Absolute Lymphocytes (CBC) 0.6 K/uL (0.7-4.9); Absolute Monocytes 0.7 K/uL (0.1-1.3); Absolute Neutrophil 12.8 K/uL (1.8-8.0); Basophils % 0.1 % (0-1.3); Hematocrit 25.4 % (36.0-45.0); Lymphocytes % 4.3 % (15.3-44.8); MCH 28.6 pg (27.0-35.0); MCV 86.5 fL (80-100); MPV 9.2 fL (7.6-11.3); Monocytes % 4.8 % (3.3-12.3); RBC Red Blood Cell Count 2.94 M/uL (3.86-4.86)
[2017-11-06 05:17] LABS: Magnesium 2.4 mg/dL (1.8-2.4); Potassium 4.7 mmol/L (3.5-5.1)
[2017-11-06] MEDS: PANTOPRAZOLE 40MG TABLET PO SCH (06:25)
[2017-11-06] MEDS: ARFORMOTEROL TARTRATE 15 MCG/2 ML VIAL.NEB NEB SCH (07:49)
[2017-11-06] MEDS: DILTIAZEM HCL 120 MG SR CAP PO SCH (09:26)
[2017-11-06] MEDS: predniSONE 20 MG TAB PO SCH (09:26)
[2017-11-06 09:59] VITALS: O2SAT 100
--- NOTE | 2017-11-06 11:44 | P.CNS ---
Date of Consult: 11/06/17 Primary Care Provider: Dr. Gregory(Plan to use another PCP soon); Pulm-Dr. Stephenson;Card-Dr. Spangler Chief Complaint: Shortness of breath History of Present Illness: Patient is 87 years of age with terminal COPD admitted with worsening dyspnea and hypoxemia patient is disabled unable to visit my office for a medications as been progressively declining denies any cough sputum hemoptysis or chest pain Allergies No Known Allergies Allergy (Verified 05/14/17 00:02) Home Medications: Budesonide/Formoterol Fumarate [Symbicort 160-4.5 Mcg Inhaler] 2 puff IH DAILY 09/06/15 Aspirin Chewable [Aspirin Chewable*] 81 mg PO BEDTIME 08/04/16 Cholecalciferol (Vitamin D3) [Vitamin D3] 5,000 unit PO BEDTIME 08/04/16 Melatonin [Melatonin*] 3 mg PO BEDTIME 08/04/16 Albuterol Sulfate [Albuterol Sulfate 0.083% Neb Soln] 2.5 mg IH Q4H PRN #60 ml 05/14/17 Ipratropium Neb [Atrovent*] 0.5 mg IH Q4H PRN #30 amp 05/14/17 Methylprednisolone [Medrol dosepack] 4 mg PO DAILY 10/23/17 Omeprazole [Prilosec] 40 mg PO DAILY 10/23/17 Theophylline Anhydrous [Juancho-24] 200 mg PO BID 10/23/17 Diltiazem Cd [Cardizem Cd] 120 mg PO DAILY #90 cap 10/26/17 Methylprednisolone [Medrol dosepack] 4 mg PO DIRECTED #1 jhoan 10/26/17 Fluticasone [Flonase 50mcg Nasal [place]] 2 sprays NS DAILY 11/03/17 Mag Hydrox/Al Hydrox/Simeth [Antacid Liquid] 10 ml PO TID 11/03/17 predniSONE [Deltasone*] 10 mg PO DAILY 11/03/17 - Past Medical/Surgical History Diabetic: No -: COPD, end-stage, oxygen-dependent, chronic steroid dependent -: Osteoporosis -: History of Compression fractures -: History of Breast Ca -: History of Spinal Ca -: Atrial fibrillation not on chronic anti coagulation therapy -: Wheelchair-bound -: Former tobacco use -: Lymphoma -: Right breast mastectomy -: Left femur repair -: Cholecystectomy -: Spinal surgery Psychosocial/ Personal History: Patient lives with her daughter. She is a . She has 5 children. She no longer smokes. - Family History Sister Medical History: Hypertension, Diabetes Mother Medical History: Diabetes - Social History Alcohol use: No CD- Drugs: No Caffeine use: Yes Place of Residence: Home Review of Systems General: Weakness Respiratory: Shortness of Breath Physical Examination Temp Pulse Resp BP Pulse Ox 97.6 F 79 18 124/58 L 98 11/06/17 08:00 11/06/17 09:26 11/06/17 08:00 11/06/17 09:26 11/06/17 08:00 General: Alert, Cooperative HEENT: Atraumatic Neck: Supple Respiratory: Diminished, Expiratory wheezes Cardiovascular: No edema, Normal S1 S2 Gastrointestinal: Normal bowel sounds, Soft and benign - Problems (1) COPD (chronic obstructive pulmonary disease) Onset Date: 10/24/17 Current Visit: No Status: Acute Plan: Patient is 87 years of age with a history of terminal COPD has been progressively declining agree with hospice care she needs bronchodilators albuterol ipratropium q.6 hr or per 1 are performance twice a day low-dose prednisone overall prognosis is very poor arterial blood gases had low-dose theophylline Qualifiers: COPD type: unspecified COPD Qualified Code(s): J44.9 - Chronic obstructive pulmonary disease, unspecified
[2017-11-06] MEDS ORDERED: IPRATROPIUM BROM 0.5MG/2.5ML NEB SCH (14:00)
[2017-11-06 18:02] VITALS: BP 118/56; TEMP 97.1
[2017-11-06] MEDS ORDERED: predniSONE 10 MG TAB PO SCH (21:00)
--- NOTE | 2017-11-07 06:56 | DS ---
Date of Discharge: 11/06/2017 Consultants: Dr. Stephenson with Pulmonology. Admitting Diagnoses: 1.Acute on chronic respiratory distress with hypoxia. 2.End-stage chronic obstructive pulmonary disease, O2 dependent. 3.Shortness of breath. 4.Atrial fibrillation, not on anticoagulation due to falls and bleeds. 5.Osteoporosis. 6.History of lymphoma. 7.Gastroesophageal reflux disease. Discharge Diagnoses: 1.Acute on chronic respiratory failure with hypoxia secondary to end-stage chronic obstructive pulmo nary disease. 2.Shortness of breath, dependent on O2 and steroids, not improving. 3.Atrial fibrillation. Not on anticoagulation due to risk of falls. Atrial fibrillation is chronic . 4.Gastroesophageal reflux disease without esophagitis. 5.Mild renal insufficiency, likely secondary to dehydration. 6.Anemia with B12 deficiency. 7.History of lymphoma. 8.Osteoporosis. Hospital Course: The patient is an elderly female, 87 years old, comes in with acute on chronic resp iratory failure secondary to end-stage COPD. The patient is on home oxygen and chronic steroids. Al so, has atrial fibrillation and hypertension. The patient was admitted on BiPAP due to her respirato ry failure. She did have some mild elevation in her troponin and BNP, likely secondary to demand mis match. The previous echocardiogram showed EF of 74%, done in September of 2017. The patient was seen b y Dr. Stephenson with Pulmonology. The patient was started on IV steroids, was kept on BiPAP, and wean ed off as tolerated. She was also started on her in-home inhalers. Her home medications were contin ued. The patient's code status is DNR. Family were also involved in decision making with the masood t and they all agreed to hospice care for the patient as she is desaturating into the 70s with minima l if any exertion, even moving her around in the bed. The patient and family understand that she has end-stage COPD. Her goals are care and comfort, does not want any invasive measures such as ventila tion or tracheostomy. Blood cultures were negative. The patient did have some steroid-induced leuko cytosis. Otherwise, still having some difficulty breathing. Hospice was set up with [facility]. The erika ent will be transferred to inpatient hospice today and discharged. Her chest x-ray showed fibrotic a nd obstructive lung changes similar to previous. Total time spent discharging the patient was 34 minutes. Physical Examination: General: Awake, alert, oriented, moderate distress. CV: S1, S2. No murmurs. Respiratory: Diminished breath sounds. Some wheezing and stridor. Gastrointestinal: Abdomen is soft, nontender, nondistended. Positive bowel sounds. Extremities: No clubbing, cyanosis, or edema. Neurologic: Nonfocal. /TOBI Voice ID: [id number] Report ID: [id number]
[2017-11-07] MEDS ORDERED: THEOPHYLLINE SR 100 MG TAB PO SCH (09:00)
== END 2017-11-06 14:18 | disposition hospice, inpatient (51) | DRG 189 ==
LOC: ER 06:08 → ERHOLD 09:29 → 2ND 11:25 → OBSVTOIN 15:30
PROVIDERS: ADMIT Family Medicine; ATTEND Family Medicine
PROC: 5A09457 Assistance with Respiratory Ventilation, 24-96 Consecutive Hours, Continuous Positive Airway Pressure (ICD-10-PCS; principal; 2017-11-03)
DX: J96.21 Acute and chronic respiratory failure with hypoxia (principal); J44.1 Chronic obstructive pulmonary disease with (acute) exacerbation; I48.2 Chronic atrial fibrillation; K21.9 Gastro-esophageal reflux disease without esophagitis; N28.9 Disorder of kidney and ureter, unspecified; E86.0 Dehydration; D64.9 Anemia, unspecified; D51.9 Vitamin B12 deficiency anemia, unspecified; Z85.72 Personal history of non-Hodgkin lymphomas; M81.0 Age-related osteoporosis without current pathological fracture; Z99.81 Dependence on supplemental oxygen; Z79.52 Long term (current) use of systemic steroids; I10 Essential (primary) hypertension; Z66 Do not resuscitate; Z99.3 Dependence on wheelchair; Z85.3 Personal history of malignant neoplasm of breast
CPT/HCPCS: 36415; 71045; 80048; 80061; 80076; 81003; 82550; 82553; 82607; 82728; 83540; 83690; 83735; 83880; 84132; 84466; 84484; 85014; 85018; 85025; 85610; 87040; 93005; 94640; 94660; 94760; 96365; 96375; 99285; J1650; J2920; J2930; J3475; J7512; J7605

== ENCOUNTER 2017-11-12 15:33 | Inpatient (IN) | payer OTHER ==
--- OUTSIDE RECORDS SUMMARY | 2017-11-12 15:36 | XMS REPORT | Clinical Summary ---
:1930 Author Organization [facility] Address [address] [place] [address] Phone Care Team Providers Name Role Phone [...] spine, non-traumatic ([facility]) 09/16/2015 Pathologic compression fracture of thoracic vertebra ([facility]) 09/11/2015 COPD (chronic obstructive pulmonary disease) ([facility]) Family History Medical History Relation Name Comments Diabetes Mother Relation Name Status Comments Mother Social History Tobacco Use Types Packs/Day Years Used Date Former Smoker Cigarettes 1 35 01/27/1944 - 01/27/1980 Alcohol Use Drinks/Week oz/Week Comments No Sex Assigned at Date Recorded Not on file Last Filed Vital Signs Not on file Plan of Treatment Not on file Implants Implanted Type Area Drapery Counselor Device Expiration Model / Identifier Date Serial / Lot Matrix Floseal Hemo W/O Ndl 10 [id number] - [id number] Cement/F N/A: Spine GROVER:BIOSCI 12/26/2016 [id number] / Implanted: Qty: 1 on 09/17/2015 by Amadeo Vega MD iller/Ad Thoracic / hesive [id number] Voyager Mas 6.5x40 Spine N/A: Spine [employer] [id number] / Implanted: Qty: 1 on 09/17/2015 by Amadeo Vega MD Thoracic / [id number] Voyager Mas 5.5x35 Spine N/A: Spine [employer] [id number] / Implanted: Qty: 4 on 09/17/2015 by Amadeo Vega MD Thoracic / [id number] Voyager Set Screws Spine N/A: Spine MEDTRONIC [id number] / Implanted: Qty: 6 on 09/17/2015 by Amadeo Vega MD Thoracic / Orthoblend Small 10cc Spine N/A: Spine MEDTRONIC 04/13/2017 [id number] / Implanted: Qty: 1 on 09/17/2015 by Amadeo Vega MD Thoracic [id number] / Bi 4.68o148 Spine N/A: Spine MEDTRONIC [id number] / Implanted: Qty: 2 on 09/17/2015 by Amadeo Vega MD Thoracic / [id number] Voyager Mas 6.4x45 Spine N/A: Spine MEDTR[employer]IC [id number] / Implanted: Qty: 1 on 09/17/2015 by Amadeo Vega MD Thoracic / [id number] Results Not on fileafter 11/11/2016
[2017-11-12] MEDS ORDERED: ACETAMINOPHEN 500 MG TAB PO PRN (15:37)
[2017-11-12] MEDS ORDERED: ONDANSETRON 4 MG/2 ML VIAL IV PRN (15:37)
[2017-11-12] MEDS: IPRATROPIUM BROM 0.5MG/2.5ML NEB SCH ×3 (16:00→23:08)
[2017-11-12] MEDS ORDERED: ENOXAPARIN 40 MG/0.4 ML SQ SCH (17:00)
[2017-11-12 17:17] LABS: Arterial Blood Carboxyhemoglob 2.4 % (0-1.5); Blood Gas Oxyhemoglobin 90.1 % (94-97); Blood O2 Saturation 92.9 % (92-98.5)
[2017-11-12 17:55] LABS: Urine Appearance CLOUDY; Urine Bilirubin NEGATIVE (NEG); Urine Blood NEGATIVE (NEG); Urine Color YELLOW; Urine Glucose NEGATIVE (NEG); Urine Protein NEGATIVE (NEG); Urine Specific Gravity 1.015 (1.005-1.030); Urine pH 6.5 (5.0-7.0)
[2017-11-12 17:57] LABS: Urine Microscopic Reflex ORDER UMIC
[2017-11-12 18:00] VITALS: BMI 20.8
[2017-11-12 18:09] LABS: ALT/SGPT 18 U/L (12-78); AST/SGOT 12 U/L (15-37); Albumin 2.2 g/dL (3.4-5.0); Alkaline Phosphatase 55 U/L (45-117); BUN Blood Urea Nitrogen 22 mg/dL (7-18); Bicarbonate 40 mmol/L (21-32); Bilirubin Total 0.9 mg/dL (0.2-1.0); Glucose Level 119 mg/dL (74-106); NT PRO-BNP 1312 pg/mL (<450); Potassium 4.1 mmol/L (3.5-5.1); Protein, Total 5.7 g/dL (6.4-8.2); Sodium Level 134 mmol/L (136-145)
[2017-11-12 18:20] LABS: Absolute Lymphocytes (CBC) 0.3 K/uL (0.7-4.9); Absolute Monocytes 0.2 K/uL (0.1-1.3); Absolute Neutrophil 4.6 K/uL (1.8-8.0); Basophils % 0.1 % (0-1.3); Eosinophils % 0.1 % (0-4.4); Hematocrit 22.6 % (36.0-45.0); Lymphocytes % 5.9 % (15.3-44.8); MCV 88.5 fL (80-100); MPV 8.2 fL (7.6-11.3); Monocytes % 3.5 % (3.3-12.3); RBC Red Blood Cell Count 2.55 M/uL (3.86-4.86)
[2017-11-12] MEDS: NA CHLORIDE 0.9% 1,000 ML IV SCH (18:38)
[2017-11-12 19:15] LABS: Urine Amorphous Sediment 2+ /HPF (NONE SEEN); Urine Bacteria >50 /HPF (<20); Urine Culture Reflex Order REFLEXED; Urine RBC NONE SEEN /HPF (NONE SEEN)
--- NOTE | 2017-11-12 19:22 | EKG ---
Test Date: 2017-11-12 Test Time: 17:49:49 Offset Printing Operator: ISHA MEASUREMENT RESULTS: Intervals: Rate: 110 MI: QRSD: 72 QT: 308 QTc: 416 [place]: P: MI: QRS: 61 T: 78 INTERPRETIVE STATEMENTS: Atrial fibrillation with rapid ventricular response Abnormal ECG Compared to ECG 11/03/2017 09:15:45 Sinus rhythm no longer present Atrial premature complex(es) no longer present Aberrant conduction of supraventricular beat(s) no longer present Electronically Signed On 11-12-17 19:22:26 CDT by Chito Spangler
--- NOTE | 2017-11-12 19:46 | RAD REPORT ---
EXAM DESCRIPTION: RAD - Chest Single View - 11/12/2017 7:25 pm CLINICAL HISTORY: SOB Chest pain. COMPARISON: Chest Single View dated 11/05/2017; Chest Single View dated 11/04/2017; Chest Single View d ated 11/03/2017; Chest Single View dated 10/23/2017 FINDINGS: Portable technique limits examination quality. Emphysematous changes are present with bibasilar lung opacities noted, greater on the right, likely r epresenting pneumonia. The heart is normal in size. Left-sided port catheter has its tip in the right atrium.Right axillary dissection clips seen. Thoracic spine hardware is present. IMPRESSION: Bibasilar lung opacities are present, greater on the right, likely representing infiltra te/pneumonia.
[2017-11-12] MEDS: ALBUTEROL 2.5 MG/3 ML NEB SOL NEB SCH (19:52)
[2017-11-12 19:56] LABS: Anisocytosis 1+; Blood Morphology Comment NOTED (NOT SEEN); Hypochromasia 1+; Platelet Estimate ADEQ; Polychromasia 2+; Urine White Blood Cell Casts OK
[2017-11-12] MEDS ORDERED: HOME MED 1 EA UNK (Theophylline Anhydrous [Theo-24] 200 MG) PO SCH (21:00)
[2017-11-12] MEDS: MAGNES/ALUMIN/SIMET 30ML UCUP PO SCH (21:26)
[2017-11-12] MEDS: MELATONIN 3 MG TABLET PO SCH (21:26)
[2017-11-12] MEDS: VITAMIN D 5,000 UNIT CAP PO SCH (21:27)
[2017-11-12] MEDS: ASPIRIN 81 MG CHEWABLE TABLET PO SCH (21:27)
[2017-11-12] MEDS: THEOPHYLLINE SR 100 MG TAB PO SCH (21:27)
[2017-11-13 01:25] LABS: Hematocrit 20.5 % (36.0-45.0)
--- NOTE | 2017-11-13 02:43 | HP ---
Date of Admission: 11/12/2017 Primary Care Physician: Bill Laura M.D. Plans to switch PCP soon. Chief Complaint: Acute on chronic respiratory failure, discharged from hospice. Code Status: Do not resuscitate. History Of Present Illness: The patient is an 87-year-old female who was admitted to the hospital on 11/03/2017 for shortness of breath. 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 The patient was seen by Pulmonology and, due to her e nd-stage symptoms and lack of improvement in her condition, the patient was referred for hospice. Th e patient was under hospice care from 11/06/2017 until today when the family requested re-evaluation and were wanting the patient to be back on her supplemental oxygen, breathing treatments, medications , and essentially wanted to have the patient back under active care and not hospice. It seems that t he patient's family may have misunderstood the goals of hospice and they do not agree with the goals at this time of keeping the patient comfortable. They believe that their mother is not dying despite her end-stage COPD and chronic dependence on oxygen and steroids. They wish for her to be under act jeet care. The patient does get very hypoxic down to the 70% range, even with minimal exertion sittin g up in bed. The patient has been on hospice care and on pain medications and medications for anxiet y as the family do not have a medical power of attorney law clerk and the patient is not coherent at this time. The patient will be moved to ICU for further evaluation and treatment as hospice is being discharge d. Past Medical History: COPD, end-stage, oxygen dependent, chronic steroid dependent; osteoporosis; hi story of compression fractures; history of breast cancer; history of spinal cancer; atrial fibrillati on, not on chronic anticoagulation therapy; wheelchair bound; former tobacco use; lymphoma; right matt ast mastectomy; left femur repair; cholecystectomy; spinal surgery. Allergies: NO KNOWN DRUG ALLERGIES. Medications: List reviewed. Family History: Sister has hypertension and diabetes. Mother has diabetes. Social History: Former smoker. No alcohol use or illicit drug use. 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 Review of Systems: Unable to obtain due to patient's medical condition. Physical Examination: Vital Signs: Temperature 98.4, heart rate 115, blood pressure 114/65, respirations 20, O2 95% on 2 L via nasal cannula. General: Asleep, but arousable. Not oriented. Ill-appearing, frail, elderly female. HEENT: Normocephalic, atraumatic. PERRLA. EOMI. Dry mucous membranes. The oropharynx is clear. Poor dentition. Conjunctivae anicteric. Neck: Supple. No JVD. Trachea midline. CV: S1, S2. Irregularly irregular. Peripheral pulses weak bilaterally. Respiratory: Diminished breath sounds throughout. Some mild wheezing. Gastrointestinal: Abdomen is soft, nontender, nondistended. Positive bowel sounds. No guarding or rigidity. Extremities: No clubbing, cyanosis, or edema. No calf tenderness. Neuro: The patient is very somnolent, unable to properly assess cranial nerves. However, there is n o focal neurological deficit. The patient is able to move all 4 extremities. She is able to answer some questions but is very weak. Skin: No rashes. Normal skin turgor. Psych: Deferred. Laboratory Data: Pending. Assessment And Plan: This is an 87-year-old female with: 1.Acute on chronic respiratory failure with hypoxia, secondary to end-stage chronic obstructive pulm onary disease. We will continue with supplemental oxygen. Obtain ABG. May need to be placed on BiP AP. 2.End-stage chronic obstructive pulmonary disease, O2 and steroid dependent. We will resume steroid dose IV. Continue with breathing treatments. 3.Atrial fibrillation with controlled ventricular rate, not on chronic anticoagulation due to risk o f falls and bleed. We will place on cardiac telemetry. Continue rate control. 4.Osteoporosis. 5.History of lymphoma. 6.Gastroesophageal reflux disease. We will continue Protonix. 7.History of spinal cancer. 8.History of lymphoma. Code status 'do not resuscitate.' No medical power of attorney law clerk at this poin t. Family present at the bedside. 9.Gastrointestinal and deep vein thrombosis prophylaxis with Lovenox and proton pump inhibitor. Plan: Admit the patient to ICU. Place as inpatient. Overall very poor prognosis. Family at this p oint do not want pulmonology services. SA/MODL Voice ID: [id number]
[2017-11-13] MEDS: IPRATROPIUM BROM 0.5MG/2.5ML NEB SCH ×3 (03:08→13:14)
[2017-11-13] MEDS: ALBUTEROL 2.5 MG/3 ML NEB SOL NEB SCH ×3 (03:08→13:14)
[2017-11-13] MEDS ORDERED: NA CHLORIDE 0.9% 250 ML ONE (04:15)
[2017-11-13] MEDS: NA CHLORIDE 0.9% 1,000 ML IV SCH (05:20)
[2017-11-13] MEDS: PANTOPRAZOLE 40MG TABLET PO SCH (08:16)
[2017-11-13] MEDS: THEOPHYLLINE SR 100 MG TAB PO SCH ×2 (08:16→22:02)
[2017-11-13] MEDS: DILTIAZEM HCL 120 MG SR CAP PO SCH (08:16)
[2017-11-13] MEDS: MAGNES/ALUMIN/SIMET 30ML UCUP PO SCH ×4 (08:17→21:00)
[2017-11-13] MEDS ORDERED: HOME MED 1 EA UNK (Budesonide/Formoterol Fumarate [Symbicort 160-4.5 Mcg Inhaler] 2 PUFF) IH SCH (09:00)
[2017-11-13] MEDS ORDERED: HOME MED 1 EA UNK (Omeprazole [Prilosec] 40 MG) PO SCH (09:00)
[2017-11-13] MEDS ORDERED: predniSONE 10 MG TAB PO SCH (09:00)
[2017-11-13] MEDS: ALPRAZOLAM 0.25 MG TABLET PO PRN ×2 (09:50→22:12)
--- NOTE | 2017-11-13 15:23 | P.PN ---
Subjective Date of Service: 11/13/17 Primary Care Provider: Previously with Dr. Gregory; Pulmonary-Dr. Stephenson Chief Complaint: Shortness of breath Subjective: Other (Patient stable at this time.) Physical Examination - Vital Signs Temperature: 97.4 F Blood Pressure: 99/52 Pulse: 110 Respirations: 23 Pulse Ox (%): 98 - Physical Exam General: Alert, Cooperative HEENT: Atraumatic Neck: Supple Respiratory: Diminished (Bilateral), Other (Poor inspiration and expiration) Cardiovascular: Irregular heart rate/rhythm (Atrial fibrillation rate slightly elevated) Gastrointestinal: Normal bowel sounds, Non-distended, No masses, No rebound, No guarding Musculoskeletal: No tenderness, No warmth Integumentary: No warmth, No cyanosis Neurological: Normal speech, Normal strength at 5/5 x4 extr, Normal tone - Studies Laboratory Data (last 24 hrs) 11/13/17 11:00: Hgb 9.2 L, Hct 27.0 L D 11/13/17 00:48: Hgb 6.8 L*, Hct 20.5 L* 11/12/17 17:32: Sodium 134 L, Potassium 4.1, BUN 22 H D, Creatinine 0.50 L, Glucose 119 H, Total Bilirubin 0.9, AST 12 L, ALT 18, Alkaline Phosphatase 55 11/12/17 17:32: WBC 5.1 D, Hgb 7.4 L*, Hct 22.6 L, Plt Count 152 Medications List Reviewed: Yes Assessment & Plan Discharge Plan: LTAC Plan to discharge in: 24 Hours - Code Status/Comfort Care Code Status Assessed: Yes (Patient is do not resuscitate) Physician Review Additional Text: Impression: Acute on chronic respiratory failure with hypoxia secondary to end-stage COPD, oxygen and steroid dependent Atrial fibrillation not on chronic anti coalition therapy due to risk of falls and bleed Anemia requiring transfusion Osteoporosis History of spinal cancer, lymphoma GERD Plan: Patient stable at this time. Will continue with COPD medication and treatment. Will maintain sats above 90%. Case discussed at length with family about plan of care. Family has discontinued hospice. Options were addressed in detail. Will pursue long-term acute care facility placement to help improve her overall status. Patient still has a very poor prognosis due to end-stage COPD. Patient understands this. Advanced directives have been addressed in the past. Patient is do not resuscitate. Will transfer patient to the floor. Will discuss with sr. social media & mobile manager about long-term acute care facility placement. Time Spent Managing Pts Care (In Minutes): 55
[2017-11-13] MEDS: IPRATROPIUM BROM 0.5MG/2.5ML NEB PRN (19:46)
[2017-11-13] MEDS: ARFORMOTEROL TARTRATE 15 MCG/2 ML VIAL.NEB NEB SCH (19:46)
[2017-11-13] MEDS: VITAMIN D 5,000 UNIT CAP PO SCH (21:00)
[2017-11-13] MEDS: predniSONE 10 MG TAB PO SCH (22:03)
[2017-11-13] MEDS: MELATONIN 3 MG TABLET PO SCH (22:03)
[2017-11-13] MEDS: ASPIRIN 81 MG CHEWABLE TABLET PO SCH (22:03)
[2017-11-13] MEDS: FLUTICASONE 50MCG NASAL SPRAY NAS SCH (22:05)
[2017-11-13] MEDS ORDERED: NA CHLORIDE 0.9% 1,000 ML ONE (23:28)
[2017-11-14] MEDS: ALBUTEROL 2.5 MG/3 ML NEB SOL NEB PRN (03:45)
[2017-11-14] MEDS: IPRATROPIUM BROM 0.5MG/2.5ML NEB PRN ×3 (03:45→19:44)
[2017-11-14 04:41] LABS: Absolute Lymphocytes (CBC) 0.3 K/uL (0.7-4.9); Absolute Monocytes 0.2 K/uL (0.1-1.3); Absolute Neutrophil 4.8 K/uL (1.8-8.0); Basophils % 0.2 % (0-1.3); Eosinophils % 1.1 % (0-4.4); Lymphocytes % 5.8 % (15.3-44.8); MCH 28.4 pg (27.0-35.0); MCV 84.9 fL (80-100); Monocytes % 4.6 % (3.3-12.3); RBC Red Blood Cell Count 3.06 M/uL (3.86-4.86)
[2017-11-14 04:53] LABS: BUN Blood Urea Nitrogen 15 mg/dL (7-18); Bicarbonate 37 mmol/L (21-32); Glucose Level 106 mg/dL (74-106); Potassium 3.4 mmol/L (3.5-5.1); Sodium Level 139 mmol/L (136-145)
[2017-11-14] MEDS ORDERED: POTASSIUM CL SA 10 MEQ TAB PO ONE ×2 (05:22→20:00)
[2017-11-14] MEDS: PANTOPRAZOLE 40MG TABLET PO SCH (07:30)
[2017-11-14] MEDS: ARFORMOTEROL TARTRATE 15 MCG/2 ML VIAL.NEB NEB SCH ×2 (08:15→19:44)
[2017-11-14] MEDS: MAGNES/ALUMIN/SIMET 30ML UCUP PO SCH ×3 (09:00→21:00)
[2017-11-14] MEDS: predniSONE 10 MG TAB PO SCH (09:00)
[2017-11-14] MEDS: FLUTICASONE 50MCG NASAL SPRAY NAS SCH (09:00)
[2017-11-14] MEDS: DILTIAZEM HCL 120 MG SR CAP PO SCH (09:00)
[2017-11-14] MEDS: THEOPHYLLINE SR 100 MG TAB PO SCH ×2 (09:00→21:18)
[2017-11-14] MEDS ORDERED: HYDROCODONE/APAP 5/325 MG TAB PO PRN (11:49)
[2017-11-14] MEDS ORDERED: TRAMADOL HCL 50 MG TAB PO PRN (11:49)
--- NOTE | 2017-11-14 11:57 | P.PN ---
Subjective Date of Service: 11/14/17 Primary Care Provider: Previously with Dr. Gregory; Pulmonary-Dr. Stephenson Chief Complaint: Shortness of breath Subjective: Improving (Patient seems to be improving slightly. She is not comfortable in the bed.) Physical Examination - Vital Signs Temperature: 97.6 F Blood Pressure: 116/69 Pulse: 107 Respirations: 18 Pulse Ox (%): 92 - Physical Exam General: Alert, In no apparent distress, Cooperative, Cachectic HEENT: Atraumatic Neck: Supple Respiratory: Expiratory wheezes (bilateral, poor air movement bilaterally) Cardiovascular: Irregular heart rate/rhythm (Atrial fibrillation, rate stable) Gastrointestinal: Normal bowel sounds, Soft and benign, Non-distended, No masses , No rebound, No guarding Musculoskeletal: No erythema, No tenderness, No warmth Integumentary: No erythema, No warmth, No cyanosis Neurological: Normal speech, Normal strength at 5/5 x4 extr, Normal tone, Normal affect - Studies Laboratory Data (last 24 hrs) 11/14/17 03:35: Sodium 139, Potassium 3.4 L, BUN 15, Creatinine 0.40 L, Glucose 106, Magnesium 2.0 11/14/17 03:35: WBC 5.5, Hgb 8.7 L, Hct 26.0 L, Plt Count 155 Medications List Reviewed: Yes Assessment & Plan Discharge Plan: LTAC Plan to discharge in: 24 Hours Physician Review Additional Text: Impression: Acute on chronic respiratory failure with hypoxia secondary to end-stage COPD, oxygen and steroid dependent Atrial fibrillation not on chronic anti coagulation therapy due to risk of falls and bleed Anemia requiring transfusion Osteoporosis History of spinal cancer, lymphoma GERD Plan: Acute on chronic respiratory failure with hypoxia secondary to end-stage COPD, oxygen and steroid dependent: Continue with oxygen, BIPAP and COPD medication. She is responding to therapy. Will check CXR as previous CXR showed possible pneumonia(bilateral). No fever or respiratory compromised noted to day. Will recheck CXR and obtain Procalcitonin to determine if the patient will require antibiotic therapy. Family desires LTAC placement. They were not happy with expectations of Hospice. LTAC will hopefully optimize her COPD. They understand that her COPD is end stage. I also addressed that her current condition maybe her new baseline. She may eventually need Hospice in the future. For now, will need LTAC. Patient may require noninvasive ventilator at final discharge. Will have PT assess. Will pursue LTAC. Atrial fibrillation not on chronic anti coagulation therapy due to risk of falls and bleed: Will monitor. Will continue with rate control medication. Will add DVT prophylaxis while in the hospital. No chronic anti coagulation at discharge. Anemia requiring transfusion: Hemoglobin stable after one unit of pRBCs given. Will continue to monitor. Osteoporosis: Stable. Will need PT for active range of motion. History of spinal cancer, lymphoma: Stable. GERD: Will continue with PPI. Hypokalemia: Will continue to monitor and replace. Time Spent Managing Pts Care (In Minutes): 55
--- NOTE | 2017-11-14 13:04 | RAD REPORT ---
EXAM DESCRIPTION: RAD - Chest Single View - 11/14/2017 12:57 pm CLINICAL HISTORY: End-stage COPD, shortness of breath COMPARISON: September 11 TECHNIQUE: AP portable chest image was obtained 1243 hours . FINDINGS: Patient is significantly rotated. There is extensive interstitial lung disease. Patient bailey s prominent interstitial opacification in the lower right lung field. Patchy alveolar opacification i s present. Pleural thickening changes evident in the right hemithorax is well. Mediastinum is distort ed by the rotation. Lung markings may be fractionally increased in the lateral inferior right upper l obe abutting the minor fissure. Heart size is upper normal. Right pleural effusion is suspected. No enlarging pleural effusion and no pneumothorax. No acute bone finding identifiable. Bone assessment is limited. No acute aortic findin gs suspected. IMPRESSION: Exam is limited by significant rotation. Right base pleural and parenchymal opacification are present showing no improvement from prior day st udy. Patient may have slight progression of opacification in the lateral inferior right upper lobe.
[2017-11-14] MEDS ORDERED: predniSONE 20 MG TAB PO SCH (15:00)
[2017-11-14] MEDS ORDERED: LACTULOSE 20 GM/30 ML UCUP PO PRN (17:01)
[2017-11-14] MEDS: ENOXAPARIN 30 MG/0.3 ML SQ SCH (17:52)
[2017-11-14] MEDS: ASPIRIN 81 MG CHEWABLE TABLET PO SCH (21:07)
[2017-11-14] MEDS: VITAMIN D 5,000 UNIT CAP PO SCH (21:07)
[2017-11-14] MEDS: DOCUSATE NA 100 MG CAP PO SCH (21:07)
[2017-11-14] MEDS: predniSONE 20 MG TAB PO SCH (21:07)
[2017-11-14] MEDS: MELATONIN 3 MG TABLET PO SCH (21:18)
[2017-11-14] MEDS: ALPRAZOLAM 0.25 MG TABLET PO PRN (21:19)
[2017-11-15 05:50] LABS: BUN Blood Urea Nitrogen 10 mg/dL (7-18); Bicarbonate 36 mmol/L (21-32); Glucose Level 127 mg/dL (74-106); Magnesium 1.9 mg/dL (1.8-2.4); Potassium 3.8 mmol/L (3.5-5.1); Sodium Level 139 mmol/L (136-145)
[2017-11-15 05:57] LABS: Absolute Lymphocytes (CBC) 0.4 K/uL (0.7-4.9); Absolute Monocytes 0.2 K/uL (0.1-1.3); Absolute Neutrophil 5.7 K/uL (1.8-8.0); Basophils % 0.1 % (0-1.3); Eosinophils % 0.1 % (0-4.4); Hematocrit 25.8 % (36.0-45.0); Lymphocytes % 5.9 % (15.3-44.8); MCH 28.5 pg (27.0-35.0); MCV 85.6 fL (80-100); RBC Red Blood Cell Count 3.01 M/uL (3.86-4.86)
[2017-11-15] MEDS ORDERED: BISACODYL 10 MG RECTAL SUPP PR ONE (06:55)
[2017-11-15] MEDS: ARFORMOTEROL TARTRATE 15 MCG/2 ML VIAL.NEB NEB SCH ×2 (07:30→19:53)
[2017-11-15] MEDS: IPRATROPIUM BROM 0.5MG/2.5ML NEB PRN ×3 (07:30→19:53)
[2017-11-15] MEDS: predniSONE 20 MG TAB PO SCH ×2 (08:59→21:34)
[2017-11-15] MEDS: DOCUSATE NA 100 MG CAP PO SCH ×2 (08:59→21:32)
[2017-11-15] MEDS: DILTIAZEM HCL 120 MG SR CAP PO SCH (09:00)
[2017-11-15] MEDS ORDERED: POTASSIUM CL SA 10 MEQ TAB PO ONE (09:00)
[2017-11-15] MEDS: PANTOPRAZOLE 40MG TABLET PO SCH (09:00)
[2017-11-15] MEDS: MAGNES/ALUMIN/SIMET 30ML UCUP PO SCH ×3 (09:00→21:33)
[2017-11-15] MEDS: FLUTICASONE 50MCG NASAL SPRAY NAS SCH (09:00)
[2017-11-15] MEDS: THEOPHYLLINE SR 100 MG TAB PO SCH ×2 (09:01→21:35)
--- NOTE | 2017-11-15 12:21 | P.PN ---
Subjective Date of Service: 11/15/17 Primary Care Provider: Previously with Dr. Gregory; Pulmonary-Dr. Stephenson Chief Complaint: Shortness of breath Subjective: Improving Physical Examination - Vital Signs Temperature: 97.9 F Blood Pressure: 120/77 Pulse: 120 Respirations: 20 Pulse Ox (%): 100 - Physical Exam General: Alert, In no apparent distress, Oriented x3, Cooperative HEENT: Atraumatic Neck: Supple Respiratory: Expiratory wheezes (Bilateral but improved) Cardiovascular: Irregular heart rate/rhythm (Atrial fibrillation rate slightly increased) Gastrointestinal: Normal bowel sounds, Soft and benign, Non-distended, No tenderness, No masses, No rebound, No guarding Musculoskeletal: No erythema, No tenderness, No warmth Integumentary: No erythema, No warmth, No cyanosis Neurological: Normal speech, Normal strength at 5/5 x4 extr, Normal tone, Normal affect - Studies Laboratory Data (last 24 hrs) 11/15/17 05:15: Sodium 139, Potassium 3.8, BUN 10, Creatinine 0.50 L, Glucose 127 H, Magnesium 1.9 11/15/17 05:15: WBC 6.3 D, Hgb 8.6 L, Hct 25.8 L, Plt Count 182 11/14/17 12:25: Potassium 3.7 Microbiology Data (last 24 hrs): 11/12/17 17:15 Catheterized Urine [place] Count - Final >100,000 CFU/ML. 11/12/17 17:15 Catheterized Urine - Final Medications List Reviewed: Yes Assessment & Plan Discharge Plan: LTAC Plan to discharge in: 24 Hours Physician Review Additional Text: Impression: Acute on chronic respiratory failure with hypoxia secondary to end-stage COPD, oxygen and steroid dependent Atrial fibrillation not on chronic anti coagulation therapy due to risk of falls and bleed Anemia requiring transfusion Osteoporosis History of spinal cancer, lymphoma GERD Plan: Acute on chronic respiratory failure with hypoxia secondary to end-stage COPD, oxygen and steroid dependent: Continue with oxygen and COPD medication. Patient was able to sit the bedside. Continue with physical therapy. Patient being evaluated for long-term acute care facility placement. Patient seems to be improving. Pro calcitonin negative. The patient does not meet criteria for long-term acute care facility patient based on insurance family is considering home health with physical therapy. Patient may require noninvasive ventilator. Case discussed with pulmonology. This will be reassessed today. Family does not desire skilled placement. Currently awaiting long-term acute care facility placement at this time. Atrial fibrillation not on chronic anti coagulation therapy due to risk of falls and bleed: Will monitor. Will continue with rate control medication. Continue with DVT prophylaxis while in the hospital. No chronic anti coagulation at discharge. Anemia requiring transfusion: Hemoglobin stable after one unit of pRBCs given. Will continue to monitor. Osteoporosis: Stable. Will need PT for active range of motion. History of spinal cancer, lymphoma: Stable. GERD: Will continue with PPI. Hypokalemia: Will continue to monitor and replace. Time Spent Managing Pts Care (In Minutes): 55
[2017-11-15] MEDS: ENOXAPARIN 30 MG/0.3 ML SQ SCH (16:47)
[2017-11-15] MEDS: ALBUTEROL 2.5 MG/3 ML NEB SOL NEB PRN (19:53)
[2017-11-15] MEDS: MELATONIN 3 MG TABLET PO SCH (21:00)
[2017-11-15] MEDS: ASPIRIN 81 MG CHEWABLE TABLET PO SCH (21:34)
[2017-11-15] MEDS: LORAZEPAM 0.5 MG TABLET PO PRN (21:34)
[2017-11-15] MEDS: VITAMIN D 5,000 UNIT CAP PO SCH (21:35)
[2017-11-16] MEDS: IPRATROPIUM BROM 0.5MG/2.5ML NEB PRN ×4 (01:35→19:33)
[2017-11-16 05:01] LABS: Absolute Lymphocytes (CBC) 0.4 K/uL (0.7-4.9); Absolute Monocytes 0.3 K/uL (0.1-1.3); Absolute Neutrophil 4.2 K/uL (1.8-8.0); Basophils % 0.1 % (0-1.3); Eosinophils % 0.2 % (0-4.4); Hematocrit 24.9 % (36.0-45.0); Lymphocytes % 8.5 % (15.3-44.8); MCH 28.4 pg (27.0-35.0); MCV 87.4 fL (80-100); MPV 7.7 fL (7.6-11.3); Monocytes % 5.7 % (3.3-12.3); RBC Red Blood Cell Count 2.84 M/uL (3.86-4.86)
[2017-11-16 05:19] LABS: BUN Blood Urea Nitrogen 12 mg/dL (7-18); Bicarbonate 37 mmol/L (21-32); Glucose Level 119 mg/dL (74-106); Potassium 4.4 mmol/L (3.5-5.1); Sodium Level 140 mmol/L (136-145)
[2017-11-16 05:27] LABS: Basophilic Stippling 2+; Blood Morphology Comment NOTED (NOT SEEN); Platelet Estimate ADEQ
[2017-11-16] MEDS: PANTOPRAZOLE 40MG TABLET PO SCH (06:10)
[2017-11-16 06:32] LABS: BUN Blood Urea Nitrogen 12 mg/dL (7-18); Bicarbonate 37 mmol/L (21-32); Glucose Level 122 mg/dL (74-106); Potassium 4.5 mmol/L (3.5-5.1); Sodium Level 142 mmol/L (136-145)
[2017-11-16] MEDS: ARFORMOTEROL TARTRATE 15 MCG/2 ML VIAL.NEB NEB SCH ×2 (08:11→19:33)
[2017-11-16] MEDS: FLUTICASONE 50MCG NASAL SPRAY NAS SCH (09:00)
[2017-11-16] MEDS ORDERED: CYANOCOBALAMIN 1000MCG/ML INJ IM ONE (10:18)
--- NOTE | 2017-11-16 10:23 | P.PN ---
Subjective Date of Service: 11/16/17 Primary Care Provider: Previously with Dr. Gregory; Pulmonary-Dr. Stephenson Chief Complaint: Shortness of breath Subjective: Improving (Patient continues to improve. Patient currently on 2 L per nasal cannula. Family at bedside.) Physical Examination - Vital Signs Temperature: 97.1 F Blood Pressure: 109/58 Pulse: 105 Respirations: 18 Pulse Ox (%): 95 - Physical Exam General: Alert, In no apparent distress, Oriented x3, Cooperative HEENT: Atraumatic Neck: Supple Respiratory: Expiratory wheezes (Bilateral), Other (Poor inspiration and expiration) Cardiovascular: Irregular heart rate/rhythm (Atrial fibrillation, rate slightly elevated) Gastrointestinal: Normal bowel sounds, Soft and benign, Non-distended, No tenderness, No masses, No rebound, No guarding Musculoskeletal: No erythema, No tenderness, No warmth Integumentary: No tenderness/swelling, No erythema, No warmth, No cyanosis Neurological: Normal speech, Normal strength at 5/5 x4 extr, Normal tone, Normal affect - Studies Laboratory Data (last 24 hrs) 11/16/17 06:08: Sodium 142, Potassium 4.5, BUN 12, Creatinine 0.60, Glucose 122 H 11/16/17 04:40: Sodium 140, Potassium 4.4, BUN 12, Creatinine 0.50 L, Glucose 119 H, Magnesium 2.0 11/16/17 04:40: WBC 4.9 D, Hgb 8.1 L, Hct 24.9 L, Plt Count 184 Microbiology Data (last 24 hrs): 11/12/17 17:15 Catheterized Urine [place] Count - Final >100,000 CFU/ML. 11/12/17 17:15 Catheterized Urine - Final Medications List Reviewed: Yes Assessment & Plan Discharge Plan: Other (technician terminal and repeater acute care facility versus home with home health and physical therapy) Plan to discharge in: 24 Hours Physician Review Additional Text: Impression: Acute on chronic respiratory failure with hypoxia secondary to end-stage COPD, oxygen and steroid dependent Atrial fibrillation not on chronic anti coagulation therapy due to risk of falls and bleed Anemia requiring transfusion Osteoporosis History of spinal cancer, lymphoma GERD Plan: Acute on chronic respiratory failure with hypoxia secondary to end-stage COPD, oxygen and steroid dependent: Continue with oxygen and COPD medication. Patient has done well. She has improved. Patient has been able to sit at bedside with physical therapy. Patient mainly bed-bound. Patient denied long- term acute care facility placement. Peer to peer discussion to be done later today to see if she still qualifies to go to a long-term acute care facility for continued rehabilitation. Family understands this. If denied again patient will go home with home health and physical therapy. Patient will need continue with COPD medication and oxygen. Patient on chronic steroids. Family does not desire her to go to a skilled facility. Await decision on peer to peer. Atrial fibrillation not on chronic anti coagulation therapy due to risk of falls and bleed: Will continue to monitor. Will continue with rate control medication. Continue with DVT prophylaxis while in the hospital. No chronic anti coagulation at discharge. Anemia requiring transfusion with noted B12 deficiency: Hemoglobin stable. Will continue to monitor hemoglobin. Will provide B12 supplementation. Osteoporosis: Stable. Will need PT for active range of motion. History of spinal cancer, lymphoma: Stable. GERD: Will continue with PPI. Hypokalemia: Will continue to monitor and replace. Time Spent Managing Pts Care (In Minutes): 55
[2017-11-16] MEDS: MAGNES/ALUMIN/SIMET 30ML UCUP PO SCH ×3 (11:16→21:27)
[2017-11-16] MEDS: THEOPHYLLINE SR 100 MG TAB PO SCH ×2 (11:17→21:28)
[2017-11-16] MEDS: DILTIAZEM HCL 120 MG SR CAP PO SCH (11:17)
[2017-11-16] MEDS: DOCUSATE NA 100 MG CAP PO SCH ×2 (11:18→21:28)
[2017-11-16] MEDS: predniSONE 20 MG TAB PO SCH ×2 (11:18→21:27)
[2017-11-16] MEDS: ENOXAPARIN 30 MG/0.3 ML SQ SCH (18:55)
[2017-11-16] MEDS: MELATONIN 3 MG TABLET PO SCH (21:00)
[2017-11-16] MEDS: LORAZEPAM 0.5 MG TABLET PO PRN (21:27)
[2017-11-16] MEDS: ASPIRIN 81 MG CHEWABLE TABLET PO SCH (21:27)
[2017-11-16] MEDS: VITAMIN D 5,000 UNIT CAP PO SCH (21:28)
[2017-11-17] MEDS: IPRATROPIUM BROM 0.5MG/2.5ML NEB PRN ×2 (01:20→07:39)
[2017-11-17] MEDS: ARFORMOTEROL TARTRATE 15 MCG/2 ML VIAL.NEB NEB SCH (07:39)
[2017-11-17] MEDS: MAGNES/ALUMIN/SIMET 30ML UCUP PO SCH ×2 (08:54→12:59)
[2017-11-17] MEDS: GUAIFENESIN/CODEINE 5ML UCUP PO PRN ×2 (08:54→14:21)
[2017-11-17] MEDS: DOCUSATE NA 100 MG CAP PO SCH (08:55)
[2017-11-17] MEDS: DILTIAZEM HCL 120 MG SR CAP PO SCH (08:55)
[2017-11-17] MEDS: PANTOPRAZOLE 40MG TABLET PO SCH (08:55)
[2017-11-17] MEDS: predniSONE 20 MG TAB PO SCH (08:56)
[2017-11-17] MEDS: SUCRALFATE 1 GM TABLET PO SCH ×2 (08:56→12:56)
[2017-11-17] MEDS: NYSTATIN 500,000 UNIT/5 ML UDC PO SCH ×2 (08:56→12:56)
[2017-11-17] MEDS: FLUTICASONE 50MCG NASAL SPRAY NAS SCH (08:56)
[2017-11-17] MEDS ORDERED: CYANOCOBALAMIN 1,000 MCG TAB PO SCH (09:00)
[2017-11-17 09:09] VITALS: O2SAT 96
--- NOTE | 2017-11-17 09:49 | P.DS ---
Admission Date: 11/12/17 Discharge Date: 11/17/17 Primary Care Provider: Previously with Dr. Gregory; Pulmonary-Dr. Stephenson Disposition: DC HOME/HOME HEALTH CARE Discharge Condition: GOOD Reason for Admission: Shortness of breath Procedures: Medical Problem List: Acute on chronic respiratory failure with hypoxia secondary to end-stage COPD, oxygen and steroid dependent Atrial fibrillation not on chronic anti coagulation therapy due to risk of falls and bleed Anemia of chronic disease requiring transfusion with B12 deficiency Osteoporosis History of spinal cancer, lymphoma GERD Anxiety disorder Chronic constipation Brief History of Present Illness: 87-year-old female with history of end-stage COPD was admitted due to hypoxia and COPD exacerbation. Patient was recently in inpatient hospice. Family and patient desired treatment to improve her condition. Hospice was revoked. Patient remain DNR. Patient was started on treatment. Hospital Course: Patient presented with Acute on chronic respiratory failure with hypoxia secondary to end-stage COPD, oxygen and steroid dependent. Patient had been with inpatient hospice. Hospice was revoked as patient and family desired treatment. Patient and family wanted to improve her condition. Patient remained do not resuscitate. This has been addressed multiple times. Patient wishes to be do not resuscitate. Patient was evaluated for long-term acute care facility placement to improve her pulmonary status. This was denied. A peer to peer discussion with the medical lead of her insurance was also done. Insurance denied going to a long-term acute care facility. Skilled placement was recommended. Patient and family did not desire to go to a skilled facility. Therefore at discharge patient will go home with home health and physical therapy. Patient was evaluated for pneumonia. No pneumonia identified. Pro calcitonin unremarkable. Patient responded well to medical therapy. At discharge she will continue with oxygen to maintain sats above 90% . Patient currently on 2 L per nasal cannula. At discharge she will continue with prednisone 20 mg 1 pill twice daily for 5 days then 1 pill once daily for 5 days then eventually to prednisone 10 mg daily. She is to continue with prednisone long-term. At discharge she will also continue with Brovana 1 unit dose twice daily, albuterol 1 unit dose 3 times a day as needed for shortness of breath and Atrovent 1 unit dose 3 times a day as needed for shortness of breath. Patient will also continue with Theodur 200 mg 1 pill daily. Home health to continue to monitor her status. At discharge she will also be provided Robitussin with codeine 1 tsp twice daily as needed for cough. Patient will need to limit her activities at home. Patient mainly bed-bound. Patient is not to overexert herself. Patient did have some irritation to her throat. Patient likely with candidiasis related to steroids. At discharge she will continue with nystatin 500 units swish and swallow 4 times a day for 7 days. Patient with underlying GERD. Patient will continue with Protonix 40 mg 1 pill once daily and Carafate 1 g 1 pill 4 times a day. Patient has atrial fibrillation not on chronic anti coagulation therapy due to risk of fall and bleeding. Patient may continue with aspirin 81 mg daily. Patient will continue with rate control medication-Cardizem CD 120 mg daily. Patient has anemia of chronic disease with noted B12 deficiency. Patient required transfusion during her stay. Hemoglobin stable at discharge. She will continue with B12 1000 mg once daily. Patient has osteoporosis. This can be monitored as an outpatient. Patient has anxiety disorder. Patient will continue with Ativan 0.5 mg 1 pill 3 times a day as needed for anxiety. This may need to be limited due to her breathing status. Patient has chronic constipation. She will continue with docusate 100 mg 1 pill twice daily. Lactulose will be provided as well to be use as needed. Vital Signs/Physical Exam: Temp Pulse Resp BP Pulse Ox 98.6 F 165 H 20 132/73 98 11/17/17 08:00 11/17/17 08:55 11/17/17 08:00 11/17/17 08:55 11/17/17 08:00 General: Alert, In no apparent distress, Oriented x3, Cooperative HEENT: Atraumatic Neck: Supple Respiratory: Expiratory wheezes (Bilateral), Other (Poor inspiration expiration) Cardiovascular: Irregular heart rate/rhythm (Atrial fibrillation, rate slightly increased) Gastrointestinal: Normal bowel sounds, Soft and benign, Non-distended, No tenderness, No masses, No rebound, No guarding Musculoskeletal: No erythema, No tenderness, No warmth Integumentary: No erythema, No warmth, No cyanosis Neurological: Normal speech, Normal strength at 5/5 x4 extr, Normal tone, Normal affect Laboratory Data at Discharge: WBC 4.9 K/uL (4.3-10.9) D 11/16/17 04:40 Hgb 8.1 g/dL (12.0-15.0) L 11/16/17 04:40 Hct 24.9 % (36.0-45.0) L 11/16/17 04:40 Plt Count 184 K/uL (152-406) 11/16/17 04:40 Sodium 142 mmol/L (136-145) 11/16/17 06:08 Potassium 4.5 mmol/L (3.5-5.1) 11/16/17 06:08 BUN 12 mg/dL (7-18) 11/16/17 06:08 Creatinine 0.60 mg/dL (0.55-1.3) 11/16/17 06:08 Glucose 122 mg/dL (74-106) H 11/16/17 06:08 Magnesium 2.0 mg/dL (1.8-2.4) 11/16/17 04:40 Total Bilirubin 0.9 mg/dL (0.2-1.0) 11/12/17 17:32 AST 12 U/L (15-37) L 11/12/17 17:32 ALT 18 U/L (12-78) 11/12/17 17:32 Alkaline Phosphatase 55 U/L (45-117) 11/12/17 17:32 Home Medications: Mag Hydrox/Al Hydrox/Simeth [Antacid Liquid] 10 ml PO TID 11/03/17 Albuterol Neb [Proventil 0.083% Neb Soln] 2.5 mg NEB TID PRN #90 amp 11/17/17 Arformoterol Tartrate [Brovana] 15 mcg NEB BIDRESP #60 vial.neb 11/17/17 Aspirin Chewable [Aspirin Chewable*] 81 mg PO BEDTIME #90 tab.chew 11/17/17 Cholecalciferol (Vitamin D3) [Vitamin D3] 5,000 unit PO BEDTIME #90 capsule Cyanocobalamin [Vitamin B-12*] 1,000 mcg PO DAILY #90 tab 11/17/17 Diltiazem Cd [Cardizem Cd*] 120 mg PO DAILY #30 cap 11/17/17 Docusate [Colace Cap*] 100 mg PO BID #60 cap 11/17/17 Fluticasone [Flonase 50MCG Nasal [place]*] 2 sprays NS DAILY #1 btl 11/17/17 Guaifen W/Codeine Syrup [ROBITUSSIN A-C Syrup*] 10 ml PO QIDP PRN #1 bottle Ipratropium Neb [Atrovent*] 0.5 mg NEB TID PRN #90 amp 11/17/17 LORazepam [Ativan*] 0.5 mg PO Q8H PRN #30 tab 11/17/17 Lactulose [Cephulac*] 30 ml PO BID PRN #1 bottle 11/17/17 Melatonin [Melatonin*] 3 mg PO BEDTIME #30 tablet 11/17/17 Nystatin 5 ml PO QID #1 bottle 11/17/17 Pantoprazole [Protonix Tab*] 40 mg PO ACB #30 tab 11/17/17 Sucralfate [Carafate*] 1 gm PO QID #90 tab 11/17/17 Theophylline Anhydrous [Juancho-24] 200 mg PO BID #60 cap.er.24h 11/17/17 predniSONE [Deltasone*] 10 mg PO DAILY #30 tab 11/17/17 predniSONE [Prednisone*] 20 mg PO SEECOM #15 tab 11/17/17 New Medications: Albuterol Neb [Proventil 0.083% Neb Soln] 2.5 mg NEB TID PRN #90 amp PRN Reason: Shortness Of Breath Arformoterol Tartrate [Brovana] 15 mcg NEB BIDRESP #60 vial.neb Aspirin Chewable [Aspirin Chewable*] 81 mg PO BEDTIME #90 tab.chew Cholecalciferol (Vitamin D3) [Vitamin D3] 5,000 unit PO BEDTIME #90 capsule Cyanocobalamin [Vitamin B-12*] 1,000 mcg PO DAILY #90 tab Diltiazem Cd [Cardizem Cd*] 120 mg PO DAILY #30 cap Docusate [Colace Cap*] 100 mg PO BID #60 cap Fluticasone [Flonase 50MCG Nasal [place]*] 2 sprays NS DAILY #1 btl Guaifen W/Codeine Syrup [ROBITUSSIN A-C Syrup*] 10 ml PO QIDP PRN #1 bottle PRN Reason: Cough Ipratropium Neb [Atrovent*] 0.5 mg NEB TID PRN #90 amp PRN Reason: Shortness Of Breath Lactulose [Cephulac*] 30 ml PO BID PRN #1 bottle PRN Reason: Constipation LORazepam [Ativan*] 0.5 mg PO Q8H PRN #30 tab PRN Reason: Anxiety Melatonin [Melatonin*] 3 mg PO BEDTIME #30 tablet Nystatin 5 ml PO QID #1 bottle Pantoprazole [Protonix Tab*] 40 mg PO ACB #30 tab predniSONE [Deltasone*] 10 mg PO DAILY #30 tab predniSONE [Prednisone*] 20 mg PO SEECOM #15 tab Sucralfate [Carafate*] 1 gm PO QID #90 tab Theophylline Anhydrous [Juancho-24] 200 mg PO BID #60 cap.er.24h Patient Discharge Instructions: 1. Patient will need to establish care with a PCP in the area to continue her care. 2. Patient presented with Acute on chronic respiratory failure with hypoxia secondary to end-stage COPD, oxygen and steroid dependent. Patient had been with inpatient hospice. Hospice was revoked as patient and family desired treatment. Patient and family wanted to improve her condition. Patient remained do not resuscitate. This has been addressed multiple times. Patient wishes to be do not resuscitate. Patient was evaluated for long-term acute care facility placement to improve her pulmonary status. This was denied. Skilled placement was recommended. Patient and family did not desire to go to a skilled facility. Therefore at discharge patient will go home with home health and physical therapy. Patient was evaluated for pneumonia. No pneumonia identified. Pro calcitonin unremarkable. Patient responded well to medical therapy. At discharge she will continue with oxygen to maintain sats above 90%. Patient currently on 2 L per nasal cannula. At discharge she will continue with prednisone 20 mg 1 pill twice daily for 5 days then 1 pill once daily for 5 days then eventually to prednisone 10 mg daily. She is to continue with prednisone long-term. At discharge she will also continue with Brovana 1 unit dose twice daily, albuterol 1 unit dose 3 times a day as needed for shortness of breath and Atrovent 1 unit dose 3 times a day as needed for shortness of breath. Patient will also continue with Theodur 200 mg 1 pill daily. Home health to continue to monitor her status. At discharge she will also be provided Robitussin with codeine 1 tsp twice daily as needed for cough. Patient will need to limit her activities at home. Patient is mainly bed-bound. She is not to over exert herself. Family to monitor for increasing shortness of breath, chest pain or change in mental status. 3. Patient did have some irritation to her throat. Patient likely with candidiasis related to steroids. At discharge she will continue with nystatin 500 units swish and swallow 4 times a day for 7 days. 4. Patient with underlying GERD. Patient will continue with Protonix 40 mg 1 pill once daily and Carafate 1 g 1 pill 4 times a day. 5. Patient has atrial fibrillation not on chronic anti coagulation therapy due to risk of fall and bleeding. Patient may continue with aspirin 81 mg daily. Patient will continue with rate control medication-Cardizem CD 120 mg daily. 6. Patient has anemia of chronic disease with noted B12 deficiency. Patient required transfusion during her stay. Hemoglobin stable at discharge. She will continue with B12 1000 mg once daily. 7. Patient has osteoporosis. This can be monitored as an outpatient. Patient may continue with vitamin-D. 8. Patient has anxiety disorder. Patient will continue with Ativan 0.5 mg 1 pill 3 times a day as needed for anxiety. This may need to be limited due to her breathing status. 9. Patient has chronic constipation. She will continue with docusate 100 mg 1 pill twice daily. Lactulose will be provided as well to be use as needed. 10. Maintenance prescriptions will be provided with 3 refills. Diet: AHA Activity: Bedrest Time spent managing pt's care (in minutes): 55
[2017-11-17] MEDS: THEOPHYLLINE SR 100 MG TAB PO SCH (10:30)
[2017-11-17 11:12] LABS: Absolute Lymphocytes (CBC) 0.5 K/uL (0.7-4.9); Absolute Monocytes 0.3 K/uL (0.1-1.3); Absolute Neutrophil 5.3 K/uL (1.8-8.0); Basophils % 0.4 % (0-1.3); Hematocrit 29.5 % (36.0-45.0); Lymphocytes % 7.5 % (15.3-44.8); MCH 28.5 pg (27.0-35.0); MCV 87.2 fL (80-100); MPV 7.8 fL (7.6-11.3); Monocytes % 5.3 % (3.3-12.3); RBC Red Blood Cell Count 3.38 M/uL (3.86-4.86)
[2017-11-17 12:00] LABS: BUN Blood Urea Nitrogen 15 mg/dL (7-18); Bicarbonate 37 mmol/L (21-32); Glucose Level 129 mg/dL (74-106); Magnesium 2.4 mg/dL (1.8-2.4); Potassium 4.3 mmol/L (3.5-5.1); Sodium Level 139 mmol/L (136-145)
[2017-11-17 14:26] VITALS: BP 140/60; TEMP 97.9
[2017-11-17] MEDS ORDERED: HEPARIN 500 UNIT/5 ML SYR IV ONE (15:25)
--- NOTE | 2017-11-18 12:13 | RAD REPORT ---
EXAM DESCRIPTION: RAD - Chest Single View - 11/17/2017 11:28 pm CLINICAL HISTORY: Cough, shortness of breath. The final report was delayed due to PACs and/or Fluency technical problems that existed at the time of the study or during expected/usual dictation time period. COMPARISON: November 14 TECHNIQUE: AP portable chest image was obtained 1316 hours . FINDINGS: Lungs are extensively fibrotic as a baseline. Interstitial pattern is not substantially di fferent from comparison. Edema and infiltrate are easily masked by severity of chronic disease. Heart size is upper normal. Patient has a prominent mediastinum in the absence of a significant rotation a rtifact. This is very likely tortuosity of vasculature based on the course of the left-side Port-A-Ca th. Mediastinal mass is not excluded but on likely. Vasculature is mildly prominent but stable. No pn eumothorax or enlarging pleural effusion. No gross bony abnormality seen. No acute aortic findings rossi spected. IMPRESSION: Extensive interstitial lung disease is present. This is not substantially different from comparison. Edema and infiltrate are easily masked by severity of chronic disease. Widened mediastinum is present. This is favored to be due to tortuosity based on the course of the le ft Port-A-Cath. Mediastinal mass or lymphadenopathy felt to be unlikely but not excluded.
== END 2017-11-17 16:47 | disposition home health service (06) | DRG 189 ==
LOC: 3RD-ICU 15:33 → 4TH 11-13 20:30
PROVIDERS: ADMIT Family Medicine; ATTEND Family Medicine
DX: J96.21 Acute and chronic respiratory failure with hypoxia (principal); J44.1 Chronic obstructive pulmonary disease with (acute) exacerbation; B37.0 Candidal stomatitis; Z99.81 Dependence on supplemental oxygen; I48.91 Unspecified atrial fibrillation; D64.9 Anemia, unspecified; D51.9 Vitamin B12 deficiency anemia, unspecified; M81.0 Age-related osteoporosis without current pathological fracture; K21.9 Gastro-esophageal reflux disease without esophagitis; F41.9 Anxiety disorder, unspecified; K59.00 Constipation, unspecified; Z79.52 Long term (current) use of systemic steroids; Z66 Do not resuscitate; E87.6 Hypokalemia; Z85.830 Personal history of malignant neoplasm of bone; Z85.3 Personal history of malignant neoplasm of breast; Z85.72 Personal history of non-Hodgkin lymphomas
CPT/HCPCS: 36415; 71045; 80048; 80053; 81003; 81015; 82805; 83735; 83880; 84132; 84145; 85014; 85018; 85025; 86850; 86900; 86901; 87086; 87088; 93005; 94640; 97163; J1642; J1650; J3420; J7030; J7512; J7605; P9016